=== PATIENT | male | born 1935 | race Two or more races ===

== ENCOUNTER 2017-08-29 13:36 | Inpatient (IN) | payer MEDICARE, MEDICAID ==
[~2017-08-29] VITALS: Ht 170.2 cm; Wt 63.0 kg
[~2017-08-29 13:36] MED LIST: CYCLOBENZAPRINE10 MG ORAL; HYZAAR 100-12.1 EACH ORAL; NORCO 5-325 TA1 EACH ORAL; RANITIDINE HCL150 MG ORAL; SIMVASTATIN20 MG ORAL; ZOFRAN ODT4 MG ORAL
[2017-08-29 14:29] VITALS: BP 166/69
[2017-08-29 14:45] LABS: BASOPHILS % (AUTO) 1.4 % (0.0-2.0); EOSINOPHILS % (AUTO) 1.3 % (0.0-3.0); HEMATOCRIT 42.3 % (42.0-52.0); LYMPHOCYTES % (AUTO) 22.7 % (20.0-45.0); MEAN CORPUSCULAR VOLUME 91 FL (80-99); MONOCYTES % (AUTO) 7.1 % (1.0-10.0); NEUTROPHILS % (AUTO) 67.5 % (45.0-75.0); PLATELET COUNT 217 K/UL (150-450); RED BLOOD COUNT 4.65 M/UL (4.70-6.10); RED CELL DISTRIBUTION WIDTH 12.8 % (11.6-14.8); WHITE BLOOD COUNT 8.3 K/UL (4.8-10.8)
--- NOTE | 2017-08-29 14:49 | Diagnostic Imaging Report ---
Indication: Dizziness Technique: Contiguous 5 mm thick transaxial imaging of the head obtained in a Siemens Sensation [address] scanner. Soft tissue and bone windows generated. Automatic Exposure Control was utilized. Total Dose length Product (DLP): 1404.[address] Dose Index Volume (CTDIvol): 70.38 mGy Comparison: none Findings: There is moderate prominence of the ventricles, basal cisterns, and cerebral sulci consistent with atrophy. Moderate, nonspecific, white matter hypoattenuation is noted throughout the brain consistent with chronic small vessel disease. Small right basal ganglia cystic focus noted consistent with an old lacunar infarct. There is no midline shift, edema, acute hemorrhage, mass effect, or abnormal extra-axial fluid collections. Bones and extra osseous soft tissues are unremarkable. Impression: No acute intracranial bleed, mass effect or edema. Old right basal ganglial lacunar Moderate atrophy of the brain. Evidence of chronic small vessel disease involving white matter tracts. The CT scanner at [facility] is accredited by the [employer] and the scans are performed using dose optimization techniques as appropriate to a performed exam including Automatic Exposure control.
--- NOTE | 2017-08-29 14:50 | Diagnostic Imaging Report ---
Indication: Dyspnea Comparison: None A single view chest radiograph was obtained. Findings: Bones are osteopenic. The heart is enlarged. Lung volumes are low but clear. Cholecystectomy clips noted in the right side. IMPRESSION: No acute disease
[2017-08-29] MEDS ORDERED: CLOPIDOGREL75 MG ORAL (14:54)
[2017-08-29] MEDS ORDERED: MILK OF MA400 MG/51 ORAL (14:54)
[2017-08-29] MEDS ORDERED: MECLIZINE HCL12.5 MG ORAL (14:54)
[2017-08-29] MEDS ORDERED: ZOCOR20 M1 ORAL (14:54)
[2017-08-29] MEDS ORDERED: TRAZODONE HCL50 MG ORAL (14:54)
[2017-08-29] MEDS ORDERED: LOSARTAN-HCTZ1 EAC2 ORAL (14:54)
[2017-08-29] MEDS ORDERED: PROTONIX20 MG ORAL (14:54)
[2017-08-29] MEDS ORDERED: COLCRYS0.6 M1 PO (14:54)
[2017-08-29] MEDS ORDERED: NAMZARIC 28 MG1 EACH PO (14:54)
[2017-08-29] MEDS ORDERED: VITAMIN D22000 UNIT PO (14:54)
[2017-08-29] MEDS ORDERED: METOPROLOL SUCC25 MG ORAL (14:54)
[2017-08-29] MEDS ORDERED: CYANOCOBAL1000 MCG/2 IJ (14:54)
[2017-08-29 14:58] LABS: ANION GAP 4 mmol/L (5-15); BLOOD UREA NITROGEN 16 mg/dL (7-18); CALCIUM 9.5 MG/DL (8.5-10.1); CARBON DIOXIDE 33 MMOL/L (21-32); CHLORIDE 102 MMOL/L (98-107); CREATININE 0.9 MG/DL (0.55-1.30); POTASSIUM 4.1 MMOL/L (3.5-5.1); SODIUM 139 MMOL/L (136-145)
[2017-08-29] MEDS ORDERED: Meclizine 25mg tab ORAL ONE (15:00)
[2017-08-29 15:10] LABS: ALANINE AMINOTRANSFERASE 33 U/L (12-78); ALBUMIN 3.8 G/DL (3.4-5.0); ALKALINE PHOSPHATASE 55 U/L (46-116); ASPARTATE AMINO TRANSFERASE 21 U/L (15-37); BILIRUBIN,TOTAL 0.9 MG/DL (0.2-1.0); CKMB 1.6 NG/ML (0.0-3.6); CREATINE KINASE 107 U/L (26-308)
--- NOTE | 2017-08-29 15:32 | Emergency Room Report ---
History of Present Illness General Chief Complaint: Generalized Weakness Source: Patient Present Illness HPI 81-year-old male presents ED for evaluation. Patient comes from long-term facility with dizziness and unsteady gait. States the room is spinning and is unable to walk. Denies any headache. States he's had this problem on and off previously but states it is worse today. Denies any slurred speech or facial droop. Denies any arm numbness or leg weakness. Denies chest pain or shortness of breath. No other aggravating relieving factors. Denies any other associated symptoms Allergies: Coded Allergies: No Known Allergies (Unverified , 04/17/17) Patient History Past Medical History: DM Past Surgical History: none Pertinent Family History: none Social History: Denies: smoking, alcohol use, drug use Immunizations: UTD Reviewed Nursing Documentation: PMH: Agreed; PSxH: Agreed Nursing Documentation-PMH Hx Hypertension: Yes Hx Diabetes: Yes Review of Systems All Other Systems: negative except mentioned in HPI Physical Exam Vital Signs Date Time Temp Pulse Resp B/P (MAP) Pulse Ox O2 Delivery O2 Flow Rate FiO2 08/29/17 13:31 97.5 60 18 188/84 98 Room Air 97.5 Sp02 EP Interpretation: reviewed, normal General Appearance: no apparent distress, alert, GCS 15, non-toxic Head: normocephalic, atraumatic Eyes: bilateral eye normal inspection, bilateral eye PERRL ENT: hearing grossly normal, normal pharynx, no angioedema, normal voice Neck: full range of motion, supple/symm/no masses Respiratory: chest non-tender, lungs clear, normal breath sounds, speaking full sentences Cardiovascular #1: regular rate, rhythm, no edema Cardiovascular #2: 2+ carotid (R), 2+ carotid (L), 2+ radial (R), 2+ radial (L) , 2+ dorsalis pedis (R), 2+ dorsalis pedis (L) Gastrointestinal: normal bowel sounds, non tender, soft, non-distended, no guarding, no rebound Rectal: deferred Genitourinary: normal inspection, no CVA tenderness Musculoskeletal: back normal, normal range of motion, non-tender Neurologic: alert, oriented x3, responsive, 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, motor strength/tone normal, sensory intact, speech normal Psychiatric: judgement/insight normal, memory normal, mood/affect normal, no suicidal/homicidal ideation Reflexes: 3+ bicep (R), 3+ bicep (L), 3+ tricep (R), 3+ tricep (L), 3+ knee (R) , 3+ knee (L) Skin: normal color, no rash, warm/dry, well hydrated Lymphatic: no adenopathy Medical Decision Making Diagnostic Impression: Primary Impression: Dizziness Additional Impression: Unsteady gait ER Course Hospital Course 81-year-old male presents ED complaining of dizziness, nausea, unsteady gait Differential diagnoses include: WI/unstable angina, arrythmia, dehydration, CVA/ TIA Clinical course Patient placed on stretcher. on gambling monitor. After initial history and physical I ordered labs, EKG, chest x-ray, IVFs, CT Brain labs reviewed- no leukocytosis, hemoglobin/hematocrit ok, electrolytes okay, troponins negative EKG- NSR, no acute ischemic changes interpreted by me Chest x-ray- no acute process CT brain-unremarkable Patient has prior history of vertigo. Had been prescribed meclizine. I gave patient dose of meclizine here. However patient continues to feel unsteady. Suspicion for central causes of vertigo is low however I do believe patient should be admitted Case discussed with Dr. Adams (covering for Dr Roy) and he agreed to accept the patient to his service for further care and support I. I feel this is a highly complex case requiring extensive working including EKG/Rhythm strip, Xray/CT/US, Blood/urine lab work, repeat exams while in ED, and administration of strong opiates/narcotics for pain control, admission to hospital or close patient follow up. Diagnosis - dizziness, unsteady gait admitted to floor in serious condition Labs Test 08/29/17 14:15 White Blood Count 8.3 K/UL (4.8-10.8) Red Blood Count 4.65 M/UL (4.70-6.10) Hemoglobin 14.0 G/DL (14.2-18.0) Hematocrit 42.3 % (42.0-52.0) Mean Corpuscular Volume 91 FL (80-99) Mean Corpuscular Hemoglobin 30.1 PG (27.0-31.0) Mean Corpuscular Hemoglobin Concent 33.1 G/DL (32.0-36.0) Red Cell Distribution Width 12.8 % (11.6-14.8) Platelet Count 217 K/UL (150-450) Mean Platelet Volume 8.3 FL (6.5-10.1) Neutrophils (%) (Auto) 67.5 % (45.0-75.0) Lymphocytes (%) (Auto) 22.7 % (20.0-45.0) Monocytes (%) (Auto) 7.1 % (1.0-10.0) Eosinophils (%) (Auto) 1.3 % (0.0-3.0) Basophils (%) (Auto) 1.4 % (0.0-2.0) Sodium Level 139 MMOL/L (136-145) Potassium Level 4.1 MMOL/L (3.5-5.1) Chloride Level 102 MMOL/L (98-107) Carbon Dioxide Level 33 MMOL/L (21-32) Anion Gap 4 mmol/L (5-15) Blood Urea Nitrogen 16 mg/dL (7-18) Creatinine 0.9 MG/DL (0.55-1.30) Estimat Glomerular Filtration Rate mL/min (>60) Glucose Level 114 MG/DL (74-106) Lactic Acid Level 0.90 mmol/L (0.66-2.22) Calcium Level 9.5 MG/DL (8.5-10.1) Total Bilirubin 0.9 MG/DL (0.2-1.0) Aspartate Amino Transf (AST/SGOT) 21 U/L (15-37) Alanine Aminotransferase (ALT/SGPT) 33 U/L (12-78) Alkaline Phosphatase 55 U/L (46-116) Total Creatine Kinase 107 U/L (26-308) Creatine Kinase MB 1.6 NG/ML (0.0-3.6) Creatine Kinase MB Relative Index 1.4 Troponin I 0.000 ng/mL (0.000-0.056) Pro-B-Type Natriuretic Peptide 207 pg/mL (0-125) Total Protein 7.5 G/DL (6.4-8.2) Albumin 3.8 G/DL (3.4-5.0) Globulin 3.7 g/dL Albumin/Globulin Ratio 1.0 (1.0-2.7) Lipase 130 U/L (73-393) EKG Diagnostic Results Rate: normal Rhythm: NSR ST Segments: no acute changes ASA given to the pt in ED: No Rhythm Strip Diag. Results EP Interpretation: yes Rhythm: NSR, no PVC's, no ectopy Chest X-Ray Diagnostic Results Chest X-Ray Diagnostic Results : Chest X-Ray Ordered: Yes # of Views/Limited/Complete: 1 View Indication: Other - diziness EP Interpretation: Yes Interpretation: no consolidation, no effusion, no pneumothorax, no acute cardiopulmonary disease Impression: No acute disease Electronically Signed by: Electronically signed by Julio Land MD CT/MRI/US Diagnostic Results CT/MRI/US Diagnostic Results : Imaging Test Ordered: CT Head Impression no acute process. old lacunar infarct Last Vital Signs Date Time Temp Pulse Resp B/P (MAP) Pulse Ox O2 Delivery O2 Flow Rate FiO2 08/29/17 14:29 57 18 166/69 98 Room Air 08/29/17 13:31 97.5 97.5 Status: improved Disposition: ADMITTED INPATIENT Condition: Serious Referrals: NON PHYSICIAN (PCP) Julio Land MD August 29, 2017 15:32
[2017-08-29] MEDS ORDERED: Acetaminophen 500mg (ES) tab ORAL ONE (16:15)
[2017-08-29 17:49] VITALS: BP 141/66
[2017-08-29 18:07] LABS: APPEARANCE,URINE CLEAR; BILIRUBIN, URINE NEGATIVE (NEGATIVE); COLOR,URINE PALE YELLOW; GLUCOSE, URINE (UA) NEGATIVE (NEGATIVE); KETONES,URINE NEGATIVE (NEGATIVE); LEUKOCYTE ESTERASE ,URINE NEGATIVE (NEGATIVE); NITRITE,URINE NEGATIVE (NEGATIVE); PH,URINE 5 (4.5-8.0); PROTEIN,URINE NEGATIVE (NEGATIVE); UROBILINOGEN,URINE NORMAL MG/DL (0.0-1.0)
--- NOTE | 2017-08-29 20:12 | History & Physical ---
History and Physical History & Physicial Dictated for Int Med Dr Adams no. [id number]. Horacio Lyons MD August 29, 2017 20:12
[2017-08-29 20:29] VITALS: BP 163/75
--- NOTE | 2017-08-29 21:15 | History and Physical Report ---
DATE OF ADMISSION: 08/29/2017 CHIEF COMPLAINT: The patient is an 81-year-old white male, who presents with chief complaint of dizziness. HISTORY OF PRESENT ILLNESS: The patient has history of vertigo. The patient is a resident of [facility]. The patient herself speaks Farsi. The patient is able to communicate somewhat in Slovenian. The patient states he normally has vertigo. The patient states the dizziness got worse today. The patient took meclizine without relief. The patient was transported to [facility] Emergency Room for evaluation. The patient is admitted for intractable vertigo to rule out cerebrovascular accident. REVIEW OF SYSTEMS: CONSTITUTIONAL: The patient denies weight loss or weight gain. The patient denies fevers or chills. HEENT: The patient denies ear or throat pain. The patient denies headache. CARDIOVASCULAR: The patient denies palpitations or chest pain. CHEST: The patient denies wheeze or shortness of breath. ABDOMEN: The patient denies nausea, vomiting, diarrhea, or constipation. GENITOURINARY: The patient denies dysuria or increased frequency of urination. NEUROMUSCULAR: The patient denies seizures or generalized weakness. The patient does complain of dizziness as above. PAST MEDICAL HISTORY: Significant for: 1. Type 2 diabetes. 2. Hypertension. 3. Hypercholesterolemia. 4. Benign positional vertigo. PAST SURGICAL HISTORY: The patient denies. CURRENT MEDICATIONS: 1. Simvastatin 20 mg one tablet p.o. daily. 2. Trazodone 50 mg p.o. nightly. 3. Meclizine 25 mg one tablet p.o. q.6 hours p.r.n. 4. Clopidogrel 75 mg p.o. daily. 5. Losartan/hydrochlorothiazide 50/12.5 one tablet p.o. daily. 6. Metoprolol 25 mg one tablet p.o. daily. 7. Namzaric 28 mg/10 mg 1 tablet p.o. daily. 8. Protonix 40 mg p.o. daily. ALLERGIES: No known drug allergies. SOCIAL HISTORY: The patient is a resident of [facility]. The patient denies tobacco or alcohol use. PHYSICAL EXAMINATION: VITAL SIGNS: Temperature 97.5, respirations 18, pulse 60, blood pressure 188/84. GENERAL: The patient is a well-developed, well-nourished [place] male, in no apparent distress. HEENT: Eyes, pupils equal and responsive to light and accommodation. Extraocular movements are intact. NECK: Supple. No lymphadenopathy. CHEST: Lungs are clear to auscultation bilaterally without wheezes or rales. CARDIOVASCULAR: Regular rhythm and rate. S1, S2 normal. No murmurs, rubs, or gallops. ABDOMEN: Soft, nontender, and nondistended. Positive bowel sounds. No evidence of hepatosplenomegaly. Currently, no rebound or guarding noted. EXTREMITIES: Negative for clubbing, cyanosis, or edema. RECTAL: Refused. GENITAL: Refused. NEUROLOGICAL: Cranial nerves II through XII are grossly intact without focal deficits. Motor strength is 5/5 bilaterally intact. Deep tendon reflexes are 2+, plantar. LABORATORY STUDIES: WBC 8.3, hemoglobin 14.0, hematocrit 42.3, platelets 217,000. Sodium 139, potassium 4.1, chloride 102, CO2 33, BUN 16, creatinine 0.9, glucose 114. Troponin 0.0. CT scan of the brain failed to demonstrate acute bleed or infarct. ASSESSMENT: This is an 81-year-old white male with: 1. Intractable vertigo. 2. Diabetes type 2. 3. Hypertension. 4. Hypercholesterolemia. TREATMENT: 1. Vertigo. The patient will continue on meclizine as above. A Neurology consultation has been obtained with Dr. Gallagher. We will follow recommendations of Neurology. 2. Diabetes type 2. Continue metformin as above. Accu-Cheks will be performed daily before meals and at bedtime . 3. Hypertension. Continue losartan/hydrochlorothiazide and metoprolol as above. 4. Hypercholesterolemia. Continue Zocor as above. Horacio Lyons M.D. DR: Gabriella JOB#: [id number] CC:
[2017-08-29] MEDS: D5 1/2NS 1,000 ML IV SCH (22:30)
[2017-08-29] MEDS ORDERED: Meclizine 25mg tab ORAL PRN (22:30)
[2017-08-29] MEDS ORDERED: Milk of Magnesia 30ml Ud ORAL PRN (22:30)
[2017-08-30 00:42] VITALS: BP 141/68
[2017-08-30 04:00] VITALS: BP 138/68
[2017-08-30 07:43] LABS: BASOPHILS % (AUTO) 0.9 % (0.0-2.0); EOSINOPHILS % (AUTO) 1.9 % (0.0-3.0); HEMATOCRIT 37.1 % (42.0-52.0); HEMOGLOBIN 12.7 G/DL (14.2-18.0); MEAN CORPUSCULAR VOLUME 90 FL (80-99); MONOCYTES % (AUTO) 6.8 % (1.0-10.0); NEUTROPHILS % (AUTO) 62.5 % (45.0-75.0); PLATELET COUNT 192 K/UL (150-450); RED BLOOD COUNT 4.13 M/UL (4.70-6.10); RED CELL DISTRIBUTION WIDTH 12.7 % (11.6-14.8); WHITE BLOOD COUNT 7.2 K/UL (4.8-10.8)
[2017-08-30 08:03] LABS: ANION GAP 9 mmol/L (5-15); BLOOD UREA NITROGEN 19 mg/dL (7-18); CALCIUM 9.1 MG/DL (8.5-10.1); CARBON DIOXIDE 30 MMOL/L (21-32); CHLORIDE 102 MMOL/L (98-107); PHOSPHORUS 5.4 MG/DL (2.5-4.9); POTASSIUM 3.5 MMOL/L (3.5-5.1); SODIUM 141 MMOL/L (136-145)
[2017-08-30 09:00] VITALS: BP 140/71
[2017-08-30] MEDS: Metoprolol Succinate XL 50mg tab ORAL SCH ×2 (09:00→18:30)
[2017-08-30] MEDS: Losartan 50mg tab ORAL SCH (09:19)
[2017-08-30] MEDS: Heparin 5000 units/ml inj SUBQ SCH ×2 (09:28→20:59)
[2017-08-30] MEDS: D5 1/2NS 1,000 ML IV SCH (12:32)
--- NOTE | 2017-08-30 14:38 | History and Physical ---
History of Present Illness General Date patient seen: August 30, 2017 Time patient seen: 14:15 Reason for Hospitalization: Generalized Weakness, dizziness Present Illness HPI Patient admitted for dizziness and weakness, unsteady gait. NO syncope. NO chest pain or SOB. No LOC Hx of HTN, DM, HLD. EKG NSR with no arrhythmias. Allergies: Coded Allergies: No Known Allergies (Unverified , 04/17/17) Medication History Scheduled Clopidogrel* (Clopidogrel*), 75 MG ORAL DAILY, (Reported) Colchicine (Colcrys), 0.6 MG PO DAILY, (Reported) Cyanocobalamin (Vitamin B-12) (Cyanocobalamin Injection), 1,000 MCG IJ ONCE A WEEK, (Reported) Cyclobenzaprine Hcl* (Flexeril*), 10 MG ORAL THREE TIMES A DAY, (Reported) Ergocalciferol (Vitamin D2) (Vitamin D2), 50,000 UNIT PO ONCE A WEEK, (Reported) Losartan/Hydrochlorothiazide (Losartan-Hctz 50-12.5 Mg Tab), 1 TAB ORAL DAILY, ( Reported) Losartan/Hydrochlorothiazide 100-12.5 Tablet (Hyzaar 100-12.5 Tablet), 1 TAB ORAL DAILY, (Reported) Magnesium Hydroxide* (Milk Of Magnesia*), 30 ML ORAL DAILY, (Reported) Meclizine Hcl* (Meclizine*), 12.5 MG ORAL BID, (Reported) Memantine HCl/Donepezil HCl (Namzaric 28 mg-10 mg Capsule), 1 EACH PO DAILY, ( Reported) Metoprolol Succinate* (Metoprolol Succinate*), 25 MG ORAL DAILY, (Reported) Pantoprazole Sodium (Protonix), 40 MG ORAL DAILY, (Reported) Ranitidine Hcl* (Zantac*), 150 MG ORAL TWICE A DAY Simvastatin (Zocor), 20 MG ORAL DAILY, (Reported) Simvastatin (Zocor), 20 MG ORAL BEDTIME, (Reported) Trazodone Hcl* (Desyrel*), 50 MG ORAL BEDTIME, (Reported) Scheduled PRN Hydrocodone Bit/Acetaminophen 5-325* ([place] 5-325*), 1 TAB ORAL Q6H PRN for For Pain, (Reported) Ondansetron Odt* (Zofran Odt*), 4 MG ORAL Q6H PRN for Nausea & Vomiting Patient History History Provided By: Patient Healthcare decision maker Resuscitation status Full Code Advanced Directive on File Review of Systems Constitutional: Reports: no symptoms ENT: Reports: no symptoms Respiratory: Reports: no symptoms Cardiovascular: Reports: no symptoms Gastrointestinal: Reports: no symptoms Musculoskeletal: Reports: no symptoms Psychiatric: Reports: no symptoms Neurological: Reports: dizziness Endocrine: Reports: no symptoms Hematologic/Lymphatic: Reports: no symptoms Physical Exam General Appearance: WD/WN HEENT: normocephalic Neck: non-tender Respiratory/Chest: chest wall non-tender Cardiovascular/Chest: normal peripheral pulses Abdomen: normal bowel sounds Extremities: normal range of motion, non-tender Skin Exam: warm/dry 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 Last 24 Hour Vital Signs Date Time Temp Pulse Resp B/P (MAP) Pulse Ox O2 Delivery O2 Flow Rate FiO2 08/30/17 09:19 140/71 08/30/17 09:00 98.0 57 18 140/71 98 Room Air 98.0 08/30/17 09:00 57 140/71 08/30/17 04:00 97.9 54 19 138/68 96 Room Air 97.9 08/30/17 00:42 97.9 56 18 141/68 94 97.9 08/29/17 20:29 97.3 59 17 163/75 96 97.3 08/29/17 18:19 97.0 61 18 141/66 97 Room Air 97.0 08/29/17 17:49 97.0 61 18 141/66 97 Room Air 97.0 Intake and Output 08/29/17 08/30/17 19:00 07:00 Intake Total 0 ml 840 ml Balance 0 ml 840 ml Intake Oral 0 ml 240 ml IV Total 600 ml Laboratory Tests Test 08/29/17 17:45 08/30/17 05:20 Urine Color Pale yellow Urine Appearance Clear Urine pH 5 (4.5-8.0) Urine Specific [place] 1.015 (1.005-1.035) Urine Protein Negative (NEGATIVE) Urine Glucose (UA) Negative (NEGATIVE) Urine Ketones Negative (NEGATIVE) Urine Occult Blood 2+ (NEGATIVE) H Urine Nitrite Negative (NEGATIVE) Urine Bilirubin Negative (NEGATIVE) Urine Urobilinogen Normal MG/DL (0.0-1.0) Urine Leukocyte Esterase Negative (NEGATIVE) Urine RBC 2-4 /HPF (0 - 0) H Urine WBC 0-2 /HPF (0 - 0) Urine Squamous Epithelial Cells None /LPF (NONE/OCC) Urine Bacteria Few /HPF (NONE) White Blood Count 7.2 K/UL (4.8-10.8) Red Blood Count 4.13 M/UL (4.70-6.10) L Hemoglobin 12.7 G/DL (14.2-18.0) L Hematocrit 37.1 % (42.0-52.0) L Mean Corpuscular Volume 90 FL (80-99) Mean Corpuscular Hemoglobin 30.8 PG (27.0-31.0) Mean Corpuscular Hemoglobin Concent 34.2 G/DL (32.0-36.0) Red Cell Distribution Width 12.7 % (11.6-14.8) Platelet Count 192 K/UL (150-450) Mean Platelet Volume 8.2 FL (6.5-10.1) Neutrophils (%) (Auto) 62.5 % (45.0-75.0) Lymphocytes (%) (Auto) 28.0 % (20.0-45.0) Monocytes (%) (Auto) 6.8 % (1.0-10.0) Eosinophils (%) (Auto) 1.9 % (0.0-3.0) Basophils (%) (Auto) 0.9 % (0.0-2.0) Sodium Level 141 MMOL/L (136-145) Potassium Level 3.5 MMOL/L (3.5-5.1) Chloride Level 102 MMOL/L (98-107) Carbon Dioxide Level 30 MMOL/L (21-32) Anion Gap 9 mmol/L (5-15) Blood Urea Nitrogen 19 mg/dL (7-18) H Creatinine 1.0 MG/DL (0.55-1.30) Estimat Glomerular Filtration Rate mL/min (>60) Glucose Level 112 MG/DL (74-106) H Calcium Level 9.1 MG/DL (8.5-10.1) Phosphorus Level 5.4 MG/DL (2.5-4.9) H Magnesium Level 1.8 MG/DL (1.8-2.4) Height (Feet): 5 Height (Inches): 7.00 Weight (Pounds): 139 Medications Current Medications Medications (Trade) Dose Ordered Sig/Jaqueline Route PRN Reason Start Time Stop Time Status Last Admin Dose Admin Atorvastatin Calcium (Lipitor) 10 mg BEDTIME ORAL 08/30/17 21:00 09/29/17 20:59 Dextrose/Sodium Chloride 1,000 ml @ 75 mls/hr [id number] IV 08/29/17 22:30 09/28/17 22:29 08/30/17 12:32 Heparin Sodium (Porcine) (Heparin 5000 units/ml) 5,000 units EVERY 12 HOURS SUBQ 08/30/17 09:00 09/29/17 08:59 08/30/17 09:28 Losartan Potassium (Cozaar) 100 mg DAILY ORAL 08/30/17 09:00 09/29/17 08:59 08/30/17 09:19 Magnesium Hydroxide (Mom) 30 ml DAILYPRN PRN ORAL Constipation 08/29/17 22:30 09/28/17 22:29 Meclizine HCl (Antivert) 12.5 mg BID PRN ORAL for dizziness 08/29/17 22:30 09/28/17 22:29 08/30/17 09:18 Metoprolol Succinate (Toprol XL) 25 mg BID ORAL 08/30/17 09:00 09/29/17 08:59 Non-Formulary Medication (Non-Formulary Med) 1 ea DAILY ORAL 08/30/17 09:00 09/29/17 08:59 UNV Ondansetron HCl (Zofran) 4 mg Q6H PRN IVP Nausea & Vomiting 08/29/17 22:30 09/28/17 22:29 Pantoprazole (Protonix) 40 mg DAILY ORAL 08/30/17 09:00 09/29/17 08:59 08/30/17 09:17 Trazodone HCl (Desyrel) 50 mg BEDTIME ORAL 08/30/17 21:00 09/29/17 20:59 Assessment/Plan Assessment/Plan Dizziness Hypertension DM HLD Plan: Carotid US Echocardiogram Physical therapy IV fluids Meclizine prn dizziness Continue lipitor Continue blood pressure medications Emil Pablo M.D. August 30, 2017 14:37
--- NOTE | 2017-08-30 15:05 | Consultation ---
History of Present Illness General Date patient seen: August 30, 2017 Chief Complaint: Generalized Weakness Present Illness HPI 81-year-old male with hx of DM, CVA, dementia, depression presented to ED for evaluation of dizziness and unsteady gait. Denies any slurred speech or facial droop. Denies any arm numbness or leg weakness. Denies chest pain or shortness of breath. The CT of head in ER was negative. He is admitted for further management. Allergies: Coded Allergies: No Known Allergies (Unverified , 04/17/17) Medication History Scheduled Clopidogrel* (Clopidogrel*), 75 MG ORAL DAILY, (Reported) Colchicine (Colcrys), 0.6 MG PO DAILY, (Reported) Cyanocobalamin (Vitamin B-12) (Cyanocobalamin Injection), 1,000 MCG IJ ONCE A WEEK, (Reported) Cyclobenzaprine Hcl* (Flexeril*), 10 MG ORAL THREE TIMES A DAY, (Reported) Ergocalciferol (Vitamin D2) (Vitamin D2), 50,000 UNIT PO ONCE A WEEK, (Reported) Losartan/Hydrochlorothiazide (Losartan-Hctz 50-12.5 Mg Tab), 1 TAB ORAL DAILY, ( Reported) Losartan/Hydrochlorothiazide 100-12.5 Tablet (Hyzaar 100-12.5 Tablet), 1 TAB ORAL DAILY, (Reported) Magnesium Hydroxide* (Milk Of Magnesia*), 30 ML ORAL DAILY, (Reported) Meclizine Hcl* (Meclizine*), 12.5 MG ORAL BID, (Reported) Memantine HCl/Donepezil HCl (Namzaric 28 mg-10 mg Capsule), 1 EACH PO DAILY, ( Reported) Metoprolol Succinate* (Metoprolol Succinate*), 25 MG ORAL DAILY, (Reported) Pantoprazole Sodium (Protonix), 40 MG ORAL DAILY, (Reported) Ranitidine Hcl* (Zantac*), 150 MG ORAL TWICE A DAY Simvastatin (Zocor), 20 MG ORAL DAILY, (Reported) Simvastatin (Zocor), 20 MG ORAL BEDTIME, (Reported) Trazodone Hcl* (Desyrel*), 50 MG ORAL BEDTIME, (Reported) Scheduled PRN Hydrocodone Bit/Acetaminophen 5-325* ([place] 5-325*), 1 TAB ORAL Q6H PRN for For Pain, (Reported) Ondansetron Odt* (Zofran Odt*), 4 MG ORAL Q6H PRN for Nausea & Vomiting Patient History Healthcare decision maker Resuscitation status Full Code Advanced Directive on File Past Medical/Surgical History Past Medical/Surgical History: (1) Dementia (2) HTN (hypertension) (3) COPD (chronic obstructive pulmonary disease) Review of Systems Constitutional: Reports: malaise, weakness All Other Systems: negative except mentioned in HPI Physical Exam General Appearance: cachetic Lines, tubes and drains: peripheral HEENT: normocephalic Neck: non-tender, normal alignment Respiratory/Chest: chest wall non-tender, normal breath sounds Breasts: no masses Cardiovascular/Chest: normal peripheral pulses Abdomen: normal bowel sounds Genitourinary/Rectal: normal prostate exam Skin Exam: warm/dry, cyanotic Last 24 Hour Vital Signs Date Time Temp Pulse Resp B/P (MAP) Pulse Ox O2 Delivery O2 Flow Rate FiO2 08/30/17 09:19 140/71 08/30/17 09:00 98.0 57 18 140/71 98 Room Air 98.0 08/30/17 09:00 57 140/71 08/30/17 04:00 97.9 54 19 138/68 96 Room Air 97.9 08/30/17 00:42 97.9 56 18 141/68 94 97.9 08/29/17 20:29 97.3 59 17 163/75 96 97.3 08/29/17 18:19 97.0 61 18 141/66 97 Room Air 97.0 08/29/17 17:49 97.0 61 18 141/66 97 Room Air 97.0 Intake and Output 08/29/17 08/30/17 19:00 07:00 Intake Total 0 ml 840 ml Balance 0 ml 840 ml Intake Oral 0 ml 240 ml IV Total 600 ml Laboratory Tests Test 08/29/17 17:45 08/30/17 05:20 Urine Color Pale yellow Urine Appearance Clear Urine pH 5 (4.5-8.0) Urine Specific Crane 1.015 (1.005-1.035) Urine Protein Negative (NEGATIVE) Urine Glucose (UA) Negative (NEGATIVE) Urine Ketones Negative (NEGATIVE) Urine Occult Blood 2+ (NEGATIVE) H Urine Nitrite Negative (NEGATIVE) Urine Bilirubin Negative (NEGATIVE) Urine Urobilinogen Normal MG/DL (0.0-1.0) Urine Leukocyte Esterase Negative (NEGATIVE) Urine RBC 2-4 /HPF (0 - 0) H Urine WBC 0-2 /HPF (0 - 0) Urine Squamous Epithelial Cells None /LPF (NONE/OCC) Urine Bacteria Few /HPF (NONE) White Blood Count 7.2 K/UL (4.8-10.8) Red Blood Count 4.13 M/UL (4.70-6.10) L Hemoglobin 12.7 G/DL (14.2-18.0) L Hematocrit 37.1 % (42.0-52.0) L Mean Corpuscular Volume 90 FL (80-99) Mean Corpuscular Hemoglobin 30.8 PG (27.0-31.0) Mean Corpuscular Hemoglobin Concent 34.2 G/DL (32.0-36.0) Red Cell Distribution Width 12.7 % (11.6-14.8) Platelet Count 192 K/UL (150-450) Mean Platelet Volume 8.2 FL (6.5-10.1) Neutrophils (%) (Auto) 62.5 % (45.0-75.0) Lymphocytes (%) (Auto) 28.0 % (20.0-45.0) Monocytes (%) (Auto) 6.8 % (1.0-10.0) Eosinophils (%) (Auto) 1.9 % (0.0-3.0) Basophils (%) (Auto) 0.9 % (0.0-2.0) Sodium Level 141 MMOL/L (136-145) Potassium Level 3.5 MMOL/L (3.5-5.1) Chloride Level 102 MMOL/L (98-107) Carbon Dioxide Level 30 MMOL/L (21-32) Anion Gap 9 mmol/L (5-15) Blood Urea Nitrogen 19 mg/dL (7-18) H Creatinine 1.0 MG/DL (0.55-1.30) Estimat Glomerular Filtration Rate mL/min (>60) Glucose Level 112 MG/DL (74-106) H Calcium Level 9.1 MG/DL (8.5-10.1) Phosphorus Level 5.4 MG/DL (2.5-4.9) H Magnesium Level 1.8 MG/DL (1.8-2.4) Height (Feet): 5 Height (Inches): 7.00 Weight (Pounds): 139 Medications Current Medications Medications (Trade) Dose Ordered Sig/Jaqueline Route PRN Reason Start Time Stop Time Status Last Admin Dose Admin Atorvastatin Calcium (Lipitor) 10 mg BEDTIME ORAL 08/30/17 21:00 09/29/17 20:59 Dextrose/Sodium Chloride 1,000 ml @ 75 mls/hr [id number] IV 08/29/17 22:30 09/28/17 22:29 08/30/17 12:32 Heparin Sodium (Porcine) (Heparin 5000 units/ml) 5,000 units EVERY 12 HOURS SUBQ 08/30/17 09:00 09/29/17 08:59 08/30/17 09:28 Losartan Potassium (Cozaar) 100 mg DAILY ORAL 08/30/17 09:00 09/29/17 08:59 08/30/17 09:19 Magnesium Hydroxide (Mom) 30 ml DAILYPRN PRN ORAL Constipation 08/29/17 22:30 09/28/17 22:29 Meclizine HCl (Antivert) 12.5 mg BID PRN ORAL for dizziness 08/29/17 22:30 09/28/17 22:29 08/30/17 09:18 Metoprolol Succinate (Toprol XL) 25 mg BID ORAL 08/30/17 09:00 09/29/17 08:59 Non-Formulary Medication (Non-Formulary Med) 1 ea DAILY ORAL 08/30/17 09:00 09/29/17 08:59 UNV Ondansetron HCl (Zofran) 4 mg Q6H PRN IVP Nausea & Vomiting 08/29/17 22:30 09/28/17 22:29 Pantoprazole (Protonix) 40 mg DAILY ORAL 08/30/17 09:00 09/29/17 08:59 08/30/17 09:17 Trazodone HCl (Desyrel) 50 mg BEDTIME ORAL 08/30/17 21:00 09/29/17 20:59 Assessment/Plan Problem List: (1) Dizziness ICD Codes: R42 - Dizziness and giddiness SNOMED: 332740288, 903042888 (2) COPD (chronic obstructive pulmonary disease) ICD Codes: J44.9 - Chronic obstructive pulmonary disease, unspecified SNOMED: 49724630 (3) HTN (hypertension) ICD Codes: I10 - Essential (primary) hypertension SNOMED: 69567959 (4) Dementia ICD Codes: F03.90 - Unspecified dementia without behavioral disturbance SNOMED: 89656569 (5) Unsteady gait ICD Codes: R26.81 - Unsteadiness on feet SNOMED: 63031538, 060700521 Assessment/Plan neuro evaluation pt/ot monitor BP echo carotid artery d/w Dr. Pablo. symptomatic treatment. dvt prophylaxis Lizeth Gupta MD August 30, 2017 15:05
[2017-08-30] MEDS ORDERED: Tubing IV Secondary IV ONE (17:35)
--- NOTE | 2017-08-30 19:43 | Internal Med Progress Note ---
Subjective Date of Service: August 30, 2017 Physician Name Horacio Lyons Attending Physician Vance Adams MD Current Medications Medications (Trade) Dose Ordered Sig/Jaqueline Route PRN Reason Start Time Stop Time Status Last Admin Dose Admin Atorvastatin Calcium (Lipitor) 10 mg BEDTIME ORAL 08/30/17 21:00 09/29/17 20:59 Heparin Sodium (Porcine) (Heparin 5000 units/ml) 5,000 units EVERY 12 HOURS SUBQ 08/30/17 09:00 09/29/17 08:59 08/30/17 09:28 Losartan Potassium (Cozaar) 100 mg DAILY ORAL 08/30/17 09:00 09/29/17 08:59 08/30/17 09:19 Magnesium Hydroxide (Mom) 30 ml DAILYPRN PRN ORAL Constipation 08/29/17 22:30 09/28/17 22:29 Meclizine HCl (Antivert) 12.5 mg BID PRN ORAL for dizziness 08/29/17 22:30 09/28/17 22:29 08/30/17 09:18 Metoprolol Succinate (Toprol XL) 25 mg BID ORAL 08/30/17 09:00 09/29/17 08:59 Non-Formulary Medication (Non-Formulary Med) 1 ea DAILY ORAL 08/30/17 09:00 09/29/17 08:59 UNV Ondansetron HCl (Zofran) 4 mg Q6H PRN IVP Nausea & Vomiting 08/29/17 22:30 09/28/17 22:29 Pantoprazole (Protonix) 40 mg DAILY ORAL 08/30/17 09:00 09/29/17 08:59 08/30/17 09:17 Trazodone HCl (Desyrel) 50 mg BEDTIME ORAL 08/30/17 21:00 09/29/17 20:59 Allergies: Coded Allergies: No Known Allergies (Unverified , 04/17/17) ROS Limited/Unobtainable: No Constitutional: Reports: no symptoms HEENT: Reports: no symptoms Cardiovascular: Reports: no symptoms Respiratory: Reports: no symptoms Gastrointestinal/Abdominal: Reports: no symptoms Genitourinary: Reports: no symptoms Neurologic/Psychiatric: Reports: no symptoms Subjective 81 YO M admitted with vertigo. Cover for Int Med Dr Adams Objective Last Vital Signs Date Time Temp Pulse Resp B/P (MAP) Pulse Ox O2 Delivery O2 Flow Rate FiO2 08/30/17 18:30 55 144/72 08/30/17 09:00 98.0 18 98 Room Air 98.0 General Appearance: WD/WN, no apparent distress, alert EENT: PERRL/EOMI, normal ENT inspection, TMs normal Neck: non-tender, normal alignment, supple Cardiovascular: normal peripheral pulses, normal rate, regular rhythm, no gallop/murmur, no JVD Respiratory/Chest: chest wall non-tender, lungs clear, normal breath sounds, no respiratory distress, no accessory muscle use Abdomen: normal bowel sounds, non tender, soft, no organomegaly, no mass Extremities: normal range of motion, non-tender Neurologic: spot washer II-XII grossly normal, no motor/sensory deficits Skin: normal pigmentation, warm/dry Laboratory Tests Test 08/30/17 05:20 08/30/17 17:00 White Blood Count 7.2 K/UL (4.8-10.8) Red Blood Count 4.13 M/UL (4.70-6.10) L Hemoglobin 12.7 G/DL (14.2-18.0) L Hematocrit 37.1 % (42.0-52.0) L Mean Corpuscular Volume 90 FL (80-99) Mean Corpuscular Hemoglobin 30.8 PG (27.0-31.0) Mean Corpuscular Hemoglobin Concent 34.2 G/DL (32.0-36.0) Red Cell Distribution Width 12.7 % (11.6-14.8) Platelet Count 192 K/UL (150-450) Mean Platelet Volume 8.2 FL (6.5-10.1) Neutrophils (%) (Auto) 62.5 % (45.0-75.0) Lymphocytes (%) (Auto) 28.0 % (20.0-45.0) Monocytes (%) (Auto) 6.8 % (1.0-10.0) Eosinophils (%) (Auto) 1.9 % (0.0-3.0) Basophils (%) (Auto) 0.9 % (0.0-2.0) Sodium Level 141 MMOL/L (136-145) Potassium Level 3.5 MMOL/L (3.5-5.1) Chloride Level 102 MMOL/L (98-107) Carbon Dioxide Level 30 MMOL/L (21-32) Anion Gap 9 mmol/L (5-15) Blood Urea Nitrogen 19 mg/dL (7-18) H Creatinine 1.0 MG/DL (0.55-1.30) Estimat Glomerular Filtration Rate mL/min (>60) Glucose Level 112 MG/DL (74-106) H Calcium Level 9.1 MG/DL (8.5-10.1) Phosphorus Level 5.4 MG/DL (2.5-4.9) H Magnesium Level 1.8 MG/DL (1.8-2.4) Troponin I 0.007 ng/mL (0.000-0.056) Intake and Output 08/29/17 08/30/17 19:00 07:00 Intake Total 0 ml 840 ml Balance 0 ml 840 ml Intake Oral 0 ml 240 ml IV Total 600 ml Assessment/Plan Problem List: (1) Vertigo Assessment & Plan: Continue meclizine (2) Hypercholesteremia Assessment & Plan: Continue lipitor (3) HTN (hypertension) Assessment & Plan: Continue cozaar (4) Dizziness Status: progressing Horacio Lyons MD August 30, 2017 19:43
[2017-08-30 20:00] VITALS: BP 152/79
[2017-08-30] MEDS ORDERED: TraZODone 50mg tab ORAL SCH (21:00)
--- NOTE | 2017-08-30 22:15 | Progress Note ---
DATE: 08/30/2017 SUBJECTIVE: The patient is calm in bed. Family member in his room. No behavior issues. Continues to be anxious, dysphoric, compliant with medication. MENTAL STATUS EXAMINATION: The patient is alert and oriented times self and place. Mood is dysphoric. Affect is constricted. Thought process is concrete. Thought content, no suicidal or homicidal ideation. ASSESSMENT: 1. Anxiety disorder. 2. Insomnia. 3. Depression. PLAN: 1. We will continue trazodone 50 mg at bedtime. 2. Provide the patient with supportive therapy and reality orientation. Radha Celis M.D. DR: NORA JOB#: [id number] CC:
--- NOTE | 2017-08-30 22:35 | Cardiology Report ---
APPROVED REPORT EKG Measurement Heart [id number] CO [id number] [id number] Sinus bradycardia with 1st degree AV block Otherwise normal ECG
[2017-08-31] VITALS: BP 127/63
--- NOTE | 2017-08-31 01:00 | Consultation ---
DATE OF CONSULTATION: 08/29/2017 CONSULTING PHYSICIAN: Radha Celis M.D. HISTORY: This is an 81-year-old male with a history of multiple medical problems. He is Farsi speaking. He is coming from a skilled nursing and has been admitted for vertigo. During evaluation, the patient is somewhat confused, he knew he is in the hospital and the situation he is in, however, he did not know the date. He has a history of depression and anxiety. He has been prescribed trazodone the hospital, medication to be restarted. The patient had difficulty with sleeping and anxiety. No suicidal or homicidal ideations. No psychotic symptoms. He has cognitive impairment. PAST PSYCHIATRIC HISTORY: Depression and anxiety. The patient was prescribed trazodone 50 mg bedtime. PAST MEDICAL HISTORY: Diabetes type 2, hypertension, hypercholesterolemia, and BPV. ALLERGIES: No known drug allergies. MENTAL STATUS EXAMINATION: The patient is alert and oriented times self, place, and situation. Mood is dysphoric. Affect is constricted, congruent with mood. Thought process is concrete. Thought content, no suicidal or homicidal ideation. Cognition is mildly impaired. ASSESSMENT: AXIS I Anxiety disorder, depression. AXIS II Deferred. AXIS III As above. PLAN: 1. The patient will be started on trazodone 50 mg at bedtime. 2. Provide the patient with supportive therapy and reality orientation. Radha Celis M.D. DR: NORA JOB#: [id number] CC:
[2017-08-31 08:00] VITALS: BP 141/75
[2017-08-31] MEDS: Metoprolol Succinate XL 50mg tab ORAL SCH (09:21)
[2017-08-31] MEDS: Losartan 50mg tab ORAL SCH (09:22)
[2017-08-31] MEDS: Heparin 5000 units/ml inj SUBQ SCH (09:22)
[2017-08-31 12:00] VITALS: BP 141/75
--- NOTE | 2017-08-31 13:23 | Pulmonology Progress Note ---
Assessment/Plan Problems: (1) Dizziness (2) COPD (chronic obstructive pulmonary disease) (3) HTN (hypertension) (4) Dementia (5) Unsteady gait Assessment/Plan improving all noted echo reviewed no new complains Subjective ROS Limited/Unobtainable: No Constitutional: Reports: no symptoms HEENT: Repors: no symptoms Respiratory: Reports: no symptoms Allergies: Coded Allergies: No Known Allergies (Unverified , 04/17/17) Objective Last 24 Hour Vital Signs Date Time Temp Pulse Resp B/P (MAP) Pulse Ox O2 Delivery O2 Flow Rate FiO2 08/31/17 12:00 98.2 93 18 141/75 97 Room Air 98.2 08/31/17 09:22 141/75 08/31/17 09:21 71 141/75 08/31/17 08:00 97.7 71 18 141/75 94 97.7 08/31/17 04:00 Room Air 08/31/17 00:00 Room Air 08/31/17 00:00 97.7 62 18 127/63 95 97.7 08/30/17 20:00 Room Air 08/30/17 20:00 97.7 63 18 152/79 94 97.7 08/30/17 18:30 55 144/72 Intake and Output 08/30/17 08/31/17 19:00 07:00 Intake Total 200 ml 250 ml Balance 200 ml 250 ml Intake Oral 200 ml 250 ml # Voids 2 3 General Appearance: WD/WN, no acute distress Respiratory/Chest: chest wall non-tender, lungs clear, normal breath sounds Cardiovascular: normal peripheral pulses, normal rate Abdomen: normal bowel sounds, no organomegaly Neurologic/Psychiatric: hook tender II-XII grossly normal Microbiology Date/Time Source Procedure Growth Status 08/29/17 14:15 Blood Blood Culture - Preliminary NO GROWTH AFTER 24 HOURS Resulted 08/29/17 14:15 Blood Blood Culture - Preliminary NO GROWTH AFTER 24 HOURS Resulted 08/29/17 17:40 Nasal Nares MRSA Culture - Final NO METHICILLIN RESISTANT STAPH AUREUS... Complete 08/29/17 17:40 Rectum VRE Culture - Final NO VANCOMYCIN RESISTANT ENTEROCOCCUS ... Complete Laboratory Tests 08/30/17 17:00: Troponin I 0.007 Current Medications Medications (Trade) Dose Ordered Sig/Jaqueline Route PRN Reason Start Time Stop Time Status Last Admin Dose Admin Atorvastatin Calcium (Lipitor) 10 mg BEDTIME ORAL 08/30/17 21:00 09/29/17 20:59 08/30/17 20:54 Heparin Sodium (Porcine) (Heparin 5000 units/ml) 5,000 units EVERY 12 HOURS SUBQ 08/30/17 09:00 09/29/17 08:59 08/31/17 09:22 Losartan Potassium (Cozaar) 100 mg DAILY ORAL 08/30/17 09:00 09/29/17 08:59 08/31/17 09:22 Magnesium Hydroxide (Mom) 30 ml DAILYPRN PRN ORAL Constipation 08/29/17 22:30 09/28/17 22:29 Meclizine HCl (Antivert) 12.5 mg BID PRN ORAL for dizziness 08/29/17 22:30 09/28/17 22:29 08/30/17 09:18 Metoprolol Succinate (Toprol XL) 25 mg BID ORAL 08/30/17 09:00 09/29/17 08:59 08/31/17 09:21 Non-Formulary Medication (Non-Formulary Med) 1 ea DAILY ORAL 08/30/17 09:00 09/29/17 08:59 UNV Ondansetron HCl (Zofran) 4 mg Q6H PRN IVP Nausea & Vomiting 08/29/17 22:30 09/28/17 22:29 Pantoprazole (Protonix) 40 mg DAILY ORAL 08/30/17 09:00 09/29/17 08:59 08/31/17 09:22 Trazodone HCl (Desyrel) 50 mg BEDTIME ORAL 08/30/17 21:00 09/29/17 20:59 08/30/17 20:54 Lizeth Gupta MD August 31, 2017 13:23
--- NOTE | 2017-09-01 08:34 | Discharge Summary ---
Discharge Summary Discharge Summary _ DATE OF ADMISSION: 08/29/2017 DATE OF DISCHARGE: 08/31/2017 REASON FOR ADMISSION: 81 years old male with past medical history significant for hypertension, diabetes mellitus type 2, high cholesterol, BPV, resident of assisted living facility, presented with dizziness and unsteady gait. He reported that the room was spinning and he was unable to walk. Patient reported having this problem in the past but this time it was worse. He denied headaches. He denied slurred speech or facial droop. He denied arm or leg numbness and weakness. He denied chest pain and shortness of breath. Vital signs reveal elevated blood pressure 188/84. CT of the head revealed no acute intracranial pathology but demonstrated old right lacunar infarct and moderate atrophy Troponin was negative. Chest x-ray revealed no acute cardiopulmonary pathology. No leukocytosis, stable hemoglobin and hematocrit, electrolytes and renal parameters. EKG revealed sinus bradycardia with heart rate of 57 and first degree AV block ,no acute ischemic changes. Patient admitted with diagnosis of intractable dizziness, unsteady gait, diabetes mellitus, hypertension, high cholesterol, CONSULTANTS: powerhouse electrician Dr. Pablo pulmonary Dr. Gupta psychiatrist Dr. Celis [facility]SE: Patient admitted to telemetry floor. Patient was on gentle cautious hydration. Patient was started on meclizine on an as needed basis. Associate Field Service Engineer and buttonhole maker closely followed. Serial troponin 2 were negative. EKG revealed no acute ischemic changes. Patient was ruled out for acute ND. No evidence of arrhythmias on telemetry. Echocardiogram revealed preserved ejection fraction of 60-65%, normal left ventricular chamber size, systolic function and wall motion, no evidence of left ventricular hypertrophy, no evidence of pericardial effusion. Moderate aortic regurgitation was noted. Blood pressure was managed with current regimen of antihypertensive medications. Blood pressure stable. Blood sugar was closely monitored, remained stable. Statin was continued. DVT and GI prophylaxis provided. Supplemental oxygen provided as needed to keep pulse oximetry above 92%. Patient was working with physical therapist. Fall precautions were maintained. Psychiatrist seen and evaluated the patient and diagnosed patient with depression, anxiety and insomnia. Patient was placed on trazodone at nighttime. Supportive therapy and reality orientation provided. Patient condition clinically improved. Patient was stable for transfer back to assisted living FINAL DIAGNOSES: Intractable dizziness with history of BPV- improved Unsteady gait Diabetes mellitus type 2 Hypertension Dementia COPD Hypercholesterolemia Depression Anxiety Insomnia DISCHARGE MEDICATIONS: See Medication Reconciliation list. DISCHARGE INSTRUCTIONS: Patient was discharged to assisted living. Follow up with primary care provider in one week. Encouraged liberal hydration. I have been assigned to dictate discharge summary for this account. I was not involved in the patient's management. Christen Baldwin NP September 01, 2017 08:34
--- NOTE | 2017-09-03 10:12 | Cardiology Report ---
APPROVED REPORT EXAM: Two-dimensional and M-mode echocardiogram with Doppler and color Doppler. INDICATION LV FUNCTION M-Mode DIMENSIONS IVSd1.1 (0.7-1.1cm)Left Atrium (MM)3.8 (1.6-4.0cm) LVDd4.3 (3.5-5.6cm)Aortic Root4.2 (2.0-3.7cm) PWd1.2 (0.7-1.1cm)Aortic Cusp Exc.1.8 (1.5-2.0cm) IVSs1.8 cm LVDs2.7 (2.5-4.0cm) PWs1.2 cm Normal left ventricular chamber size, systolic function and wall motion. Left ventricular ejection fraction estimated to be 60-65 %. No evidence of left ventricular hypertrophy. No evidence of pericardial effusion. All other cardiac chamber sizes are within normal limits. Moderately Focal aortic valve sclerosis with adequate cusp excursion. Moderately Thickened mitral valve leaflets with normal excursion. Mitral annulus and aortic root calcification. Normal pulmonic valve structure. Normal tricuspid valve structure. IVC at normal size without physiologic collapse. A color flow and spectral Doppler study was performed and revealed: Moderate aortic regurgitation. Mild mitral regurgitation. Mitral diastolic velocities suggest reduced left ventricular relaxation c/w mild LV diastolic dysfunction (Grade I ). Trace tricuspid regurgitation. Tricuspid systolic velocities suggests peak right ventricular systolic pressure of 23 mmHg Trace Pulmonic regurgitation present.
== END 2017-08-31 14:00 | disposition home or self-care (01) | DRG 149 ==
LOC: EDBD 13:36 → EMR 14:26 → EDBEDREQ 14:29 → 4W 15:54 → EDBEDREQ 16:32 → 4W 22:38
DX: R42 Dizziness and giddiness (principal); I10 Essential (primary) hypertension; E11.9 Type 2 diabetes mellitus without complications; E78.00 Pure hypercholesterolemia, unspecified; F41.9 Anxiety disorder, unspecified; F32.9 Major depressive disorder, single episode, unspecified; J44.9 Chronic obstructive pulmonary disease, unspecified; R00.1 Bradycardia, unspecified; I44.0 Atrioventricular block, first degree; R26.81 Unsteadiness on feet; F03.90 Unspecified dementia, unspecified severity, without behavioral disturbance, psychotic disturbance, mood disturbance, and anxiety; G47.00 Insomnia, unspecified; I34.0 Nonrheumatic mitral (valve) insufficiency
CPT/HCPCS: 36415; 70450; 71045; 80048; 80053; 81003; 82550; 82553; 83605; 83690; 83735; 83880; 84100; 84484; 85025; 87040; 87081; 93005; 93306; 93880; 99285

== ENCOUNTER 2017-09-05 10:15 | Inpatient (IN) | payer MEDICARE, MEDICAID ==
[~2017-09-05] VITALS: Ht 165.1 cm; Wt 68.0 kg
[~2017-09-05 10:15] MED LIST changes: +CLOPIDOGREL75 MG ORAL; +COLCRYS0.6 M1 PO; +CYANOCOBAL1000 MCG/2 IJ; +LOSARTAN-HCTZ1 EAC2 ORAL; +MECLIZINE HCL12.5 MG ORAL; +METOPROLOL SUCC25 MG ORAL; +MILK OF MA400 MG/51 ORAL; +NAMZARIC 28 MG1 EACH PO; +PROTONIX20 MG ORAL; +TRAZODONE HCL50 MG ORAL; +VITAMIN D22000 UNIT PO; +ZOCOR20 M1 ORAL
[2017-09-05] MEDS ORDERED: METFORMIN HCL500 M1 ORAL (10:20)
[2017-09-05] MEDS ORDERED: HYZAAR 50-12.51 EACH ORAL (10:20)
[2017-09-05] MEDS ORDERED: EXELON1 EACH TD (10:20)
[2017-09-05] MEDS ORDERED: ARICEPT5 MG ORAL (10:20)
[2017-09-05] MEDS ORDERED: Sodium Chloride 500ML 500 ML IV ONE (10:25)
[2017-09-05 10:29] VITALS: BP 211/76
[2017-09-05] MEDS ORDERED: Isovue-300 100ml vial INJ PRN (10:45)
[2017-09-05 10:47] LABS: BASOPHILS % (AUTO) 1.3 % (0.0-2.0); EOSINOPHILS % (AUTO) 1.5 % (0.0-3.0); HEMATOCRIT 42.6 % (42.0-52.0); HEMOGLOBIN 14.4 G/DL (14.2-18.0); LYMPHOCYTES % (AUTO) 31.7 % (20.0-45.0); MEAN CORPUSCULAR VOLUME 91 FL (80-99); MONOCYTES % (AUTO) 6.8 % (1.0-10.0); NEUTROPHILS % (AUTO) 58.6 % (45.0-75.0); PLATELET COUNT 279 K/UL (150-450); RED BLOOD COUNT 4.68 M/UL (4.70-6.10); RED CELL DISTRIBUTION WIDTH 12.8 % (11.6-14.8); WHITE BLOOD COUNT 11.1 K/UL (4.8-10.8)
--- NOTE | 2017-09-05 11:03 | Diagnostic Imaging Report ---
Indication: Chest pain Comparison: 08/29/2017 A single view chest radiograph was obtained. Findings: The heart is enlarged. The aorta is enlarged and slightly ectatic. Bones are osteopenic. Interstitium of the lung is slightly prominent which is probably chronic. There is minimal left basal atelectasis obscuring the diaphragm. IMPRESSION: No acute disease
[2017-09-05 11:25] LABS: ANION GAP 11 mmol/L (5-15); BLOOD UREA NITROGEN 18 mg/dL (7-18); CALCIUM 9.5 MG/DL (8.5-10.1); CARBON DIOXIDE 27 MMOL/L (21-32); CHLORIDE 101 MMOL/L (98-107); CREATININE 0.9 MG/DL (0.55-1.30); POTASSIUM 3.2 MMOL/L (3.5-5.1); SODIUM 139 MMOL/L (136-145)
--- NOTE | 2017-09-05 11:32 | Emergency Room Report ---
History of Present Illness General Chief Complaint: Vomiting Source: Patient, EMS Present Illness HPI Patient [facility] from adult [facility] center Patient was found to have increased nausea vomiting This started just prior to arrival Patient denies any abdominal pain Denies any fever Denies any back or flank pain Unaware of any recent change in medications Allergies: Coded Allergies: No Known Allergies (Unverified , 04/17/17) Patient History Past Medical History: see triage record Pertinent Family History: none Reviewed Nursing Documentation: PMH: Agreed; PSxH: Agreed Nursing Documentation-PMH Past Medical History: No History, Except For Hx Cardiac Problems: Yes Hx Hypertension: Yes Hx Diabetes: Yes Hx Cancer: No Hx Gastrointestinal Problems: No Hx Neurological Problems: No Review of Systems All Other Systems: negative except mentioned in HPI Physical Exam Vital Signs Date Time Temp Pulse Resp B/P (MAP) Pulse Ox O2 Delivery O2 Flow Rate FiO2 09/05/17 10:09 60 20 193/92 99 Room Air Sp02 EP Interpretation: reviewed, normal General Appearance: mild distress - Actively nauseated, appears uncomfortable Head: normocephalic, atraumatic Eyes: bilateral eye PERRL, bilateral eye EOMI ENT: hearing grossly normal, normal pharynx, TMs + canals normal, uvula midline Neck: full range of motion, supple, no meningismus, no bony tend Respiratory: lungs clear, normal breath sounds, no rhonchi, no respiratory distress, no retraction, no accessory muscle use Cardiovascular #1: normal peripheral pulses, regular rate, rhythm, no edema, no gallop, no JVD, no murmur Gastrointestinal: normal bowel sounds, non tender, soft, no mass, no organomegaly, non-distended, no guarding, no hernia, no pulsatile mass, no rebound Genitourinary: no CVA tenderness Musculoskeletal: normal inspection Neurologic: oriented x3, responsive, 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, motor strength/ tone normal, sensory intact Psychiatric: mood/affect normal Skin: normal color, no rash, warm/dry, palpation normal Lymphatic: normal inspection, no adenopathy Medical Decision Making Diagnostic Impression: Primary Impression: Vomiting Additional Impression: Abdominal pain ER Course With the history exam and presentation, multiple differentials considered, including but not limited to appendicitis, gastritis, cholecystitis, diverticulitis Given the patient's age and presentation with the vomiting neurological pathology also entertained Patient's CT imaging is read as fairly benign by radiology Patient however continues to have bilious vomitus NG tube has been placed further pain medication Admission to the hospital GI specialty consulted Gen. surgery consulted Labs Test 09/05/17 10:30 09/05/17 11:17 White Blood Count 11.1 K/UL (4.8-10.8) Red Blood Count 4.68 M/UL (4.70-6.10) Hemoglobin 14.4 G/DL (14.2-18.0) Hematocrit 42.6 % (42.0-52.0) Mean Corpuscular Volume 91 FL (80-99) Mean Corpuscular Hemoglobin 30.8 PG (27.0-31.0) Mean Corpuscular Hemoglobin Concent 33.8 G/DL (32.0-36.0) Red Cell Distribution Width 12.8 % (11.6-14.8) Platelet Count 279 K/UL (150-450) Mean Platelet Volume 8.4 FL (6.5-10.1) Neutrophils (%) (Auto) 58.6 % (45.0-75.0) Lymphocytes (%) (Auto) 31.7 % (20.0-45.0) Monocytes (%) (Auto) 6.8 % (1.0-10.0) Eosinophils (%) (Auto) 1.5 % (0.0-3.0) Basophils (%) (Auto) 1.3 % (0.0-2.0) Sodium Level 139 MMOL/L (136-145) Potassium Level 3.2 MMOL/L (3.5-5.1) Chloride Level 101 MMOL/L (98-107) Carbon Dioxide Level 27 MMOL/L (21-32) Anion Gap 11 mmol/L (5-15) Blood Urea Nitrogen 18 mg/dL (7-18) Creatinine 0.9 MG/DL (0.55-1.30) Estimat Glomerular Filtration Rate mL/min (>60) Glucose Level 211 MG/DL (74-106) Calcium Level 9.5 MG/DL (8.5-10.1) Total Bilirubin 0.7 MG/DL (0.2-1.0) Aspartate Amino Transf (AST/SGOT) 23 U/L (15-37) Alanine Aminotransferase (ALT/SGPT) 35 U/L (12-78) Alkaline Phosphatase 54 U/L (46-116) Total Creatine Kinase 70 U/L (26-308) Creatine Kinase MB 1.6 NG/ML (0.0-3.6) Creatine Kinase MB Relative Index 2.2 Troponin I 0.000 ng/mL (0.000-0.056) Total Protein 8.1 G/DL (6.4-8.2) Albumin 4.2 G/DL (3.4-5.0) Globulin 3.9 g/dL Albumin/Globulin Ratio 1.1 (1.0-2.7) Lipase 148 U/L (73-393) Urine Color Pale yellow Urine Appearance Clear Urine pH 5 (4.5-8.0) Urine Specific [place] 1.020 (1.005-1.035) Urine Protein 3+ (NEGATIVE) Urine Glucose (UA) 2+ (NEGATIVE) Urine Ketones Negative (NEGATIVE) Urine Occult Blood 2+ (NEGATIVE) Urine Nitrite Negative (NEGATIVE) Urine Bilirubin Negative (NEGATIVE) Urine Urobilinogen Normal MG/DL (0.0-1.0) Urine Leukocyte Esterase Negative (NEGATIVE) Urine RBC 5-10 /HPF (0 - 0) Urine WBC 0-2 /HPF (0 - 0) Urine Squamous Epithelial Cells Few /LPF (NONE/OCC) Urine Bacteria Few /HPF (NONE) Rhythm Strip Diag. Results EP Interpretation: yes Rate: 77 Rhythm: NSR, no PVC's, no ectopy Chest X-Ray Diagnostic Results Chest X-Ray Diagnostic Results : Chest X-Ray Ordered: Yes # of Views/Limited/Complete: 1 View Indication: Chest Pain EP Interpretation: Yes Interpretation: no consolidation, no effusion, no pneumothorax Impression: No acute disease Electronically Signed by: Merle Allen, CT/MRI/US Diagnostic Results CT/MRI/US Diagnostic Results : Impression CT abdomen pelvisIMPRESSION: No acute findings in the abdomen or pelvis identified. Diverticulosis of the colon. No definite acute diverticulitis. Status post cholecystectomy Suspected liver hemangioma in the right lobe. Atherosclerotic disease Small left inguinal hernia containing fat Status post prostatectomy. Bilateral renal cysts. Duodenal diverticulum Degenerative changes of the spine CT headImpression: No acute intracranial bleed, mass effect or edema. Moderate atrophy of the brain. Evidence of chronic small vessel disease involving white matter tracts. Last Vital Signs Date Time Temp Pulse Resp B/P (MAP) Pulse Ox O2 Delivery O2 Flow Rate FiO2 09/05/17 10:29 66 20 211/76 93 Room Air Status: improved Disposition: ADMITTED INPATIENT Condition: Serious Referrals: NOT CHOSEN IPA/,REFERRING (PCP) Merle Allen DO September 05, 2017 11:32
[2017-09-05 11:38] LABS: ALANINE AMINOTRANSFERASE 35 U/L (12-78); ALBUMIN 4.2 G/DL (3.4-5.0); ALBUMIN/GLOBULIN RATIO 1.1 (1.0-2.7); ALKALINE PHOSPHATASE 54 U/L (46-116); ASPARTATE AMINO TRANSFERASE 23 U/L (15-37); BILIRUBIN,TOTAL 0.7 MG/DL (0.2-1.0); CKMB 1.6 NG/ML (0.0-3.6); CREATINE KINASE 70 U/L (26-308)
[2017-09-05 12:06] LABS: APPEARANCE,URINE CLEAR; BILIRUBIN, URINE NEGATIVE (NEGATIVE); COLOR,URINE PALE YELLOW; GLUCOSE, URINE (UA) 2+ (NEGATIVE); KETONES,URINE NEGATIVE (NEGATIVE); LEUKOCYTE ESTERASE ,URINE NEGATIVE (NEGATIVE); NITRITE,URINE NEGATIVE (NEGATIVE); PH,URINE 5 (4.5-8.0); PROTEIN,URINE 3+ (NEGATIVE); UROBILINOGEN,URINE NORMAL MG/DL (0.0-1.0)
--- NOTE | 2017-09-05 12:13 | Diagnostic Imaging Report ---
Indication: Abdominal pain Technique: Continuous helical transaxial imaging of the abdomen and pelvis was obtained from the lung bases to the pubic symphysis during intravenous contrast administration. Coronal 2-D reformats were also obtained. Study obtained in a Siemens sensation [address] Automatic Exposure Control was utilized. Total Dose length Product (DLP): 637.[address] Dose Index Volume (CTDIvol): 12.03 mGy Comparison: None Findings: Reticular densities are present at the lung bases likely mild atelectasis. There is cardiomegaly present. Coronary calcifications and calcification involving the wall of aorta noted. There is a small hiatal hernia. There is a hemangioma measuring 2.6 cm in the posterior part of the right lobe of the liver. The study was not done as a hemangioma protocol but the findings even obtained on this single phase or compelling with nodular enhancement noted along the periphery of the mass. Cholecystectomy noted. The stomach is nondistended. The pancreas and spleen appear unremarkable. There is a duodenal diverticulum. There are diverticula throughout the colon. There is no definite diverticulitis appreciated. The urinary bladder is mildly distended. There is a small left inguinal hernia containing fat. There are surgical clips in the area of the prostate gland consistent with previous prostatectomy. There is no lymphadenopathy identified within the abdomen or pelvis. Both kidneys enhance normally. There are bilateral renal cysts present. The largest cyst is 3.5 cm in the right kidney. The appendix is not seen. There are no signs of acute appendicitis. There is narrowing of intervertebral discs and accompanying endplate osteophyte formation. Hypertrophied facet joints also demonstrated. IMPRESSION: No acute findings in the abdomen or pelvis identified. Diverticulosis of the colon. No definite acute diverticulitis. Status post cholecystectomy Suspected liver hemangioma in the right lobe. Atherosclerotic disease Small left inguinal hernia containing fat Status post prostatectomy. Bilateral renal cysts. Duodenal diverticulum Degenerative changes of the spine The CT scanner at [facility] is accredited by the [employer] and the scans are performed using dose optimization techniques as appropriate to a performed exam including Automatic Exposure control.
--- NOTE | 2017-09-05 12:14 | Diagnostic Imaging Report ---
Indication: Headache Technique: Contiguous 5 mm thick transaxial imaging of the head obtained in a Siemens Sensation [address] scanner. Soft tissue and bone windows generated. Automatic Exposure Control was utilized. Total Dose length Product (DLP): 1340.[address] Dose Index Volume (CTDIvol): 70.38 mGy Comparison: 08/29/2017 Findings: There is moderate prominence of the ventricles, basal cisterns, and cerebral sulci consistent with atrophy. Moderate, nonspecific, white matter hypoattenuation is noted throughout the brain consistent with chronic small vessel disease. There is no midline shift, edema, acute hemorrhage, mass effect, or abnormal extra-axial fluid collections. Bones and extra osseous soft tissues are unremarkable. Impression: No acute intracranial bleed, mass effect or edema. Moderate atrophy of the brain. Evidence of chronic small vessel disease involving white matter tracts. The CT scanner at [facility] is accredited by the [employer] and the scans are performed using dose optimization techniques as appropriate to a performed exam including Automatic Exposure control.
[2017-09-05] MEDS ORDERED: LORazepam Inj 2mg/ml 1ml IV ONE (12:45)
[2017-09-05] MEDS ORDERED: Morphine Sulfate 4mg/ml Inj IVP ONE (12:45)
[2017-09-05 14:50] VITALS: BP 193/84
--- NOTE | 2017-09-05 16:20 | History & Physical ---
History and Physical History & Physicial #[id number] Dx: N/V and Dizziness likely vertigo Prox SI bowel thickening without SBO plan NPO IVF SHIRLEY Walker M.D. September 05, 2017 16:20
[2017-09-05 16:21] VITALS: BP 165/70
[2017-09-05] MEDS ORDERED: Meclizine 25mg tab ORAL PRN (16:30)
--- NOTE | 2017-09-05 17:48 | Consultation ---
History of Present Illness General Date patient seen: September 05, 2017 Chief Complaint: Vomiting Present Illness HPI 81-year-old male with history of "dementia", hypertension, hyperlipidemia, diverticulosis, and history of cholecystectomy, who was admitted for dizziness/ vertigo for the past three months. the pt was told "it's psychological." The pt was pleasant and was able to answer the questions appropriately. the pt has some anxiety and taking trazodone for insomnia. Allergies: Coded Allergies: No Known Allergies (Unverified , 04/17/17) Medication History Scheduled Clopidogrel* (Clopidogrel*), 75 MG ORAL DAILY, (Reported) Colchicine (Colcrys), 0.6 MG PO DAILY, (Reported) Cyanocobalamin (Vitamin B-12) (Cyanocobalamin Injection), 1,000 MCG IJ ONCE A WEEK, (Reported) Cyclobenzaprine Hcl* (Flexeril*), 10 MG ORAL THREE TIMES A DAY, (Reported) Donepezil Hcl* (Aricept*), Unknown Dose ORAL DAILY, (Reported) Ergocalciferol (Vitamin D2) (Vitamin D2), 50,000 UNIT PO ONCE A WEEK, (Reported) Losartan/Hydrochlorothiazide (Losartan-Hctz 50-12.5 Mg Tab), 1 TAB ORAL DAILY, ( Reported) Losartan/Hydrochlorothiazide 100-12.5 Tablet (Hyzaar 100-12.5 Tablet), 1 TAB ORAL DAILY, (Reported) Losartan/Hydrochlorothiazide 50-12.5 Tablet* (Hyzaar 50-12.5 Tablet*), Unknown Dose ORAL DAILY, (Reported) Magnesium Hydroxide* (Milk Of Magnesia*), 30 ML ORAL DAILY, (Reported) Meclizine Hcl* (Meclizine*), 12.5 MG ORAL BID, (Reported) Memantine HCl/Donepezil HCl (Namzaric 28 mg-10 mg Capsule), 1 EACH PO DAILY, ( Reported) Metformin Hcl* (Metformin Hcl*), Unknown Dose ORAL TWICE A DAY, (Reported) Metoprolol Succinate* (Metoprolol Succinate*), 25 MG ORAL DAILY, (Reported) Pantoprazole Sodium (Protonix), 40 MG ORAL DAILY, (Reported) Ranitidine Hcl* (Zantac*), 150 MG ORAL TWICE A DAY Rivastigmine Tartrate (Rivastigmine), 4.5 MG PO DAILY, (Reported) Simvastatin (Zocor), 20 MG ORAL DAILY, (Reported) Simvastatin (Zocor), 20 MG ORAL BEDTIME, (Reported) Trazodone Hcl* (Desyrel*), 50 MG ORAL BEDTIME, (Reported) Scheduled PRN Hydrocodone Bit/Acetaminophen 5-325* ([place] 5-325*), 1 TAB ORAL Q6H PRN for For Pain, (Reported) Ondansetron Odt* (Zofran Odt*), 4 MG ORAL Q6H PRN for Nausea & Vomiting Miscellaneous Medications Rivastigmine (Exelon), Unknown Dose TD, (Reported) Patient History History Provided By: Patient, Medical Record, PMD Healthcare decision maker Resuscitation status Advanced Directive on File Past Medical/Surgical History Past Medical/Surgical History: (1) Gastroenteritis (2) Dementia (3) HTN (hypertension) (4) COPD (chronic obstructive pulmonary disease) (5) Hypercholesteremia (6) Vertigo (7) Abdominal pain (8) Vomiting (9) Intractable vomiting Review of Systems Psychiatric: Reports: prior hx, anxiety Physical Exam General Appearance: no apparent distress, alert Neurologic: oriented x 3, responsive, depressed affect Last 24 Hour Vital Signs Date Time Temp Pulse Resp B/P (MAP) Pulse Ox O2 Delivery O2 Flow Rate FiO2 09/05/17 16:24 98.0 83 14 165/70 94 Room Air 98.0 09/05/17 16:21 98.0 90 14 165/70 93 Room Air 98.0 09/05/17 14:50 90 14 193/84 93 Room Air 09/05/17 14:18 173/88 09/05/17 10:29 66 20 211/76 93 Room Air 09/05/17 10:09 60 20 193/92 99 Room Air Laboratory Tests Test 09/05/17 10:30 09/05/17 11:17 White Blood Count 11.1 K/UL (4.8-10.8) H Red Blood Count 4.68 M/UL (4.70-6.10) L Hemoglobin 14.4 G/DL (14.2-18.0) Hematocrit 42.6 % (42.0-52.0) Mean Corpuscular Volume 91 FL (80-99) Mean Corpuscular Hemoglobin 30.8 PG (27.0-31.0) Mean Corpuscular Hemoglobin Concent 33.8 G/DL (32.0-36.0) Red Cell Distribution Width 12.8 % (11.6-14.8) Platelet Count 279 K/UL (150-450) Mean Platelet Volume 8.4 FL (6.5-10.1) Neutrophils (%) (Auto) 58.6 % (45.0-75.0) Lymphocytes (%) (Auto) 31.7 % (20.0-45.0) Monocytes (%) (Auto) 6.8 % (1.0-10.0) Eosinophils (%) (Auto) 1.5 % (0.0-3.0) Basophils (%) (Auto) 1.3 % (0.0-2.0) Sodium Level 139 MMOL/L (136-145) Potassium Level 3.2 MMOL/L (3.5-5.1) L Chloride Level 101 MMOL/L (98-107) Carbon Dioxide Level 27 MMOL/L (21-32) Anion Gap 11 mmol/L (5-15) Blood Urea Nitrogen 18 mg/dL (7-18) Creatinine 0.9 MG/DL (0.55-1.30) Estimat Glomerular Filtration Rate mL/min (>60) Glucose Level 211 MG/DL (74-106) H Calcium Level 9.5 MG/DL (8.5-10.1) Total Bilirubin 0.7 MG/DL (0.2-1.0) Aspartate Amino Transf (AST/SGOT) 23 U/L (15-37) Alanine Aminotransferase (ALT/SGPT) 35 U/L (12-78) Alkaline Phosphatase 54 U/L (46-116) Total Creatine Kinase 70 U/L (26-308) Creatine Kinase MB 1.6 NG/ML (0.0-3.6) Creatine Kinase MB Relative Index 2.2 Troponin I 0.000 ng/mL (0.000-0.056) Total Protein 8.1 G/DL (6.4-8.2) Albumin 4.2 G/DL (3.4-5.0) Globulin 3.9 g/dL Albumin/Globulin Ratio 1.1 (1.0-2.7) Lipase 148 U/L (73-393) Urine Color Pale yellow Urine Appearance Clear Urine pH 5 (4.5-8.0) Urine Specific [place] 1.020 (1.005-1.035) Urine Protein 3+ (NEGATIVE) H Urine Glucose (UA) 2+ (NEGATIVE) H Urine Ketones Negative (NEGATIVE) Urine Occult Blood 2+ (NEGATIVE) H Urine Nitrite Negative (NEGATIVE) Urine Bilirubin Negative (NEGATIVE) Urine Urobilinogen Normal MG/DL (0.0-1.0) Urine Leukocyte Esterase Negative (NEGATIVE) Urine RBC 5-10 /HPF (0 - 0) H Urine WBC 0-2 /HPF (0 - 0) Urine Squamous Epithelial Cells Few /LPF (NONE/OCC) Urine Bacteria Few /HPF (NONE) Height (Feet): 5 Height (Inches): 5.00 Weight (Pounds): 150 Medications Current Medications Medications (Trade) Dose Ordered Sig/Jaqueline Route PRN Reason Start Time Stop Time Status Last Admin Dose Admin Acetaminophen (Tylenol) 650 mg Q4H PRN ORAL Mild Pain (Pain Scale 1-3) 09/05/17 16:30 10/05/17 16:29 Dextrose (Dextrose 50%) 25 ml STAT PRN IV Hypoglycemia 09/05/17 16:30 10/05/17 16:29 Dextrose (Dextrose 50%) 50 ml STAT PRN IV Hypoglycemia 09/05/17 16:30 10/05/17 16:29 Dextrose/Sodium Chloride 1,000 ml @ 75 mls/hr [id number] IV 09/05/17 17:20 10/05/17 17:19 Heparin Sodium (Porcine) (Heparin 5000 units/ml) 5,000 units EVERY 12 HOURS SUBQ 09/05/17 21:00 10/05/17 20:59 Hydralazine HCl (Apresoline) 10 mg Q4HR PRN IV sbp> 160 09/05/17 16:30 10/05/17 16:29 UNV Iopamidol (Isovue-300 100ml) 100 ml NOW PRN INJ Radiology Procedure 09/05/17 10:45 Meclizine HCl (Antivert) 25 mg Q6H PRN ORAL for dizziness 09/05/17 16:30 10/05/17 16:29 Assessment/Plan Assessment/Plan Anxiety d/o ?dementia? the pt is not suffering from somatoform disorder the pt diziness/vertigo could be due to four meds that was discontinued. Aricept/Namenda/Flexeril/trazodone and Exelon Remeron 15mg qhs Radha Celis M.D. September 05, 2017 17:48
[2017-09-05] MEDS: D5NS 1,000 ML IV SCH (18:51)
[2017-09-05] MEDS ORDERED: HydrALAZINE 25mg tab ORAL PRN (19:45)
[2017-09-05 20:00] VITALS: BP 139/81
[2017-09-05] MEDS ORDERED: Heparin 5000 units/ml inj SUBQ SCH (21:00)
[2017-09-06] VITALS: BP 105/62
--- NOTE | 2017-09-06 03:31 | History and Physical Report ---
DATE OF ADMISSION: 09/05/2017 CHIEF COMPLAINT: Nausea, vomiting, and dizziness. HPI: This is an 81-year-old male with history of hypertension, hyperlipidemia, diverticulosis, and history of cholecystectomy, who presents to the emergency room for dizziness that started today. The patient reports having severe dizziness every time he moves his head associated with nausea and vomiting. He says that he vomited four times today. He denies any tinnitus. He also reports some abdominal pain. He states that his abdominal pain is mild. He was unable to participate in adult daycare and is coming today because of his nausea, vomiting, and dizziness. He had a CT abdomen in the emergency room that revealed no small bowel obstruction with stool throughout. There is area of thickened small intestine, in proximal intestine. However, this test was done without contrast because the patient was unable to tolerate contrast. The patient denies any chest pain or shortness of breath. PAST MEDICAL HISTORY: Includes hypertension, hyperlipidemia, and diverticulosis. PAST SURGICAL HISTORY: History of cholecystectomy. FAMILY HISTORY: None. SOCIAL HISTORY: The patient does not smoke, drink alcohol, or use any drugs. He is from [facility]. REVIEW OF SYSTEMS: A 12-point review of systems was negative except for the pertinent positives as mentioned above. PHYSICAL EXAMINATION: VITAL SIGNS: Temperature is 98, pulse rate is 60, respiratory rate of 20, blood pressure 183/84, and O2 saturation is 93% on room air. GENERAL: No acute distress. The patient is alert, awake, and oriented x3. HEENT: Normocephalic/atraumatic. NECK: Supple. No JVD. LUNGS: Clear to auscultation bilaterally. No crackles, rhonchi, or rales. CARDIOVASCULAR: Regular rate and rhythm. Normal S1, S2. ABDOMEN: Soft, nontender, and nondistended. EXTREMITIES: No clubbing, cyanosis, or edema. The patient is able to move all extremities 4/5. There is no focal deficits noted on my exam. SKIN: Normal color on inspection. PSYCH: Appropriate mood and affect. LABORATORY AND DIAGNOSTIC DATA: CBC, white count of 11.1, hemoglobin 14.4, and platelet count of 279,000. BMP, sodium is 139, potassium 3.2, chloride 101, CO2 of 27, BUN 15, creatinine 0.9, and glucose is 211. AST is 23, ALT 35, and alkaline phosphatase 64. UA, 5 to 10, rbc's, 2+ occult blood, 2+ glucose, and no protein. EKG shows normal sinus rhythm with no ST changes. Chest x-ray shows no consolidation, effusions, or pneumothorax. Head CT shows no intracranial bleed or evidence of stroke. CT abdomen and pelvis shows no small bowel obstruction. CT abdomen and pelvis only shows diverticulosis. Status post cholecystectomy. Liver hemangioma on the right liver lobe. Small left inguinal hernia. Prostatectomy and diverticulosis. ASSESSMENT: 1. Nausea, vomiting, and dizziness concerning for benign positional vertigo versus less likely ileus/bowel obstruction versus unlikely gastroenteritis. 2. Hypertensive urgency secondary to accelerated hypertension. 3. History of hyperlipidemia. 4. Thickened small intestine. PLAN: 1. The patient to be admitted to Med/Surg. 2. NPO. 3. Meclizine to be started on . 4. Vestibular exercises to be done by physical therapy. 5. Diazepam as needed. 6. CT brain done and no stroke seen. 7. GI is consulted because of thickened proximal small intestine. 8. IV fluids. 9. We will discuss with GI and Surgery if we can remove NG tube given no bowel obstruction. 10. Antiemetics. Emil Roy MD DR: ROBERT JOB#: [id number] CC:
[2017-09-06 04:00] VITALS: BP 116/63
[2017-09-06] MEDS: D5NS 1,000 ML IV SCH ×2 (06:19→20:59)
[2017-09-06 08:00] VITALS: BP 118/59
[2017-09-06 08:13] LABS: ANION GAP 5 mmol/L (5-15); BLOOD UREA NITROGEN 18 mg/dL (7-18); CARBON DIOXIDE 31 MMOL/L (21-32); CHLORIDE 103 MMOL/L (98-107); POTASSIUM 3.7 MMOL/L (3.5-5.1); SODIUM 138 MMOL/L (136-145)
[2017-09-06 08:15] LABS: BASOPHILS % (AUTO) 0.4 % (0.0-2.0); EOSINOPHILS % (AUTO) 0.2 % (0.0-3.0); HEMATOCRIT 37.6 % (42.0-52.0); HEMOGLOBIN 13.1 G/DL (14.2-18.0); LYMPHOCYTES % (AUTO) 13.7 % (20.0-45.0); MEAN CORPUSCULAR VOLUME 90 FL (80-99); MONOCYTES % (AUTO) 8.5 % (1.0-10.0); NEUTROPHILS % (AUTO) 77.2 % (45.0-75.0); PLATELET COUNT 232 K/UL (150-450); RED BLOOD COUNT 4.17 M/UL (4.70-6.10); RED CELL DISTRIBUTION WIDTH 12.7 % (11.6-14.8); WHITE BLOOD COUNT 12.3 K/UL (4.8-10.8)
[2017-09-06] MEDS: Metoprolol Succinate XL 25mg tab ORAL SCH (08:56)
[2017-09-06] MEDS: Meclizine 25mg tab ORAL SCH ×3 (08:59→19:03)
[2017-09-06] MEDS: Milk of Magnesia 30ml Ud ORAL SCH (08:59)
[2017-09-06] MEDS ORDERED: Hyzaar 12.5mg/50mg tab ORAL SCH (09:00)
[2017-09-06] MEDS ORDERED: RIVASTIGMINE4.5 MG PO (10:53)
--- NOTE | 2017-09-06 10:54 | GI Initial Consult Note ---
History of Present Illness General Date patient seen: Sep 06, 2017 Time patient seen: 10:00 Reason for Hospitalization: Vomiting Referring physician: SHIRLEY SNADERSON Reason for Consultation: N/V Present Illness HPI This is an 81-year-old male with history of hypertension, hyperlipidemia, diverticulosis, and history of cholecystectomy, who presents to the emergency room for dizziness that started today. The patient reports having severe dizziness every time he moves his head associated with nausea and vomiting. He says that he vomited four times today. He denies any tinnitus. He also reports some abdominal pain. He states that his abdominal pain is mild. He was unable to participate in adult daycare and is coming today because of his nausea, vomiting, and dizziness. He had a CT abdomen in the emergency room that revealed no small bowel obstruction with stool throughout. There is area of thickened small intestine, in proximal intestine. However, this test was done without contrast because the patient was unable to tolerate contrast. The patient denies any chest pain or shortness of breath. GI consulted for N/V. Pt seen, awake A&O NAD with no active s/sx of N/V. No reports of diarrhea. A Head/AP CT was performed with unremarkable findings. Lipase negative. Patient presented today with mild anemia and hyperglycemia. Unknown history of endoscopy / colonoscopy. Home Meds Active Scripts Ondansetron Odt* (ZOFRAN ODT*) 4 Mg Tab.rapdis, 4 MG ORAL Q6H PRN for Nausea & Vomiting, #30 TAB 0 Refills Prov:Julio Land MD 06/15/16 Ranitidine Hcl* (ZANTAC*) 150 Mg Tablet, 150 MG ORAL TWICE A DAY, #30 TAB Prov:Julio Land MD 06/15/16 Reported Medications Rivastigmine Tartrate (RIVASTIGMINE) 4.5 Mg Capsule, 4.5 MG PO DAILY, CAP 09/06/17 Metformin Hcl* (METFORMIN HCL*) 500 Mg Tablet, ORAL TWICE A DAY, TAB 09/05/17 Rivastigmine (EXELON) 1 Each Patch.td24, TD, PATCH 09/05/17 Losartan/Hydrochlorothiazide 50-12.5 Tablet* (HYZAAR 50-12.5 TABLET*) 1 Each Tablet, ORAL DAILY, TAB 09/05/17 Donepezil Hcl* (ARICEPT*) 5 Mg Tablet, ORAL DAILY, TAB 09/05/17 Ergocalciferol (Vitamin D2) (VITAMIN D2) 2,000 Unit Tablet, 10727 UNIT PO ONCE A WEEK, TAB 08/29/17 Trazodone Hcl* (DESYREL*) 50 Mg Tablet, 50 MG ORAL BEDTIME, TAB 08/29/17 Simvastatin (ZOCOR) 20 Mg Tablet, 20 MG ORAL BEDTIME, TAB 08/29/17 Pantoprazole Sodium (PROTONIX) 20 Mg Tablet.dr, 40 MG ORAL DAILY, TAB 08/29/17 Memantine HCl/Donepezil HCl (Namzaric 28 mg-10 mg Capsule) 1 Each Cap.spr.24, 1 EACH PO DAILY, CAP 08/29/17 Magnesium Hydroxide* (MILK OF MAGNESIA*) 400 Mg/5 Ml Oral.susp, 30 ML ORAL DAILY , ML 08/29/17 Metoprolol Succinate* (METOPROLOL SUCCINATE*) 25 Mg Tab.er.24h, 25 MG ORAL DAILY , TAB 08/29/17 Meclizine Hcl* (MECLIZINE*) 12.5 Mg Tablet, 12.5 MG ORAL BID, TAB 08/29/17 Losartan/Hydrochlorothiazide (LOSARTAN-HCTZ 50-12.5 MG TAB) 1 Each Tablet, 1 TAB ORAL DAILY, TAB 0 Refills 08/29/17 Cyanocobalamin (Vitamin B-12) (CYANOCOBALAMIN INJECTION) 1,000 Mcg/1 Ml Vial, 1000 MCG IJ ONCE A WEEK, VIAL 08/29/17 Colchicine (COLCRYS) 0.6 Mg Tablet, 0.6 MG PO DAILY, TAB 08/29/17 Clopidogrel* (CLOPIDOGREL*) 75 Mg Tablet, 75 MG ORAL DAILY, TAB 08/29/17 Hydrocodone Bit/Acetaminophen 5-325* (NORCO 5-325*) 1 Each Tablet, 1 TAB ORAL Q6H PRN for For Pain, #10 TAB 0 Refills 06/15/16 Cyclobenzaprine Hcl* (FLEXERIL*) 10 Mg Tablet, 10 MG ORAL THREE TIMES A DAY, TAB 06/15/16 Simvastatin (ZOCOR) 20 Mg Tablet, 20 MG ORAL DAILY, TAB 06/15/16 Losartan/Hydrochlorothiazide 100-12.5 Tablet (HYZAAR 100-12.5 TABLET) 1 Each Tablet, 1 TAB ORAL DAILY, TAB 06/15/16 Med list reviewed/reconciled: Yes Allergies: Coded Allergies: No Known Allergies (Unverified , 04/17/17) Patient History Limited by: medical condition History Provided By: Patient, Medical Record [facility] Narrative PAST MEDICAL HISTORY: Includes hypertension, hyperlipidemia, and diverticulosis. PAST SURGICAL HISTORY: History of cholecystectomy. Social History: Denies: smoking, alcohol use, drug use, other Review of Systems All Other Systems: negative except mentioned in HPI Physical Exam Vital Signs Date Time Temp Pulse Resp B/P (MAP) Pulse Ox O2 Delivery O2 Flow Rate FiO2 09/05/17 10:09 60 20 193/92 99 Room Air 09/05/17 16:21 98.0 98.0 Sp02 EP Interpretation: reviewed, normal Labs Laboratory Tests Test 09/05/17 11:17 09/06/17 06:30 Urine Color Pale yellow Urine Appearance Clear Urine pH 5 (4.5-8.0) Urine Specific [place] 1.020 (1.005-1.035) Urine Protein 3+ (NEGATIVE) H Urine Glucose (UA) 2+ (NEGATIVE) H Urine Ketones Negative (NEGATIVE) Urine Occult Blood 2+ (NEGATIVE) H Urine Nitrite Negative (NEGATIVE) Urine Bilirubin Negative (NEGATIVE) Urine Urobilinogen Normal MG/DL (0.0-1.0) Urine Leukocyte Esterase Negative (NEGATIVE) Urine RBC 5-10 /HPF (0 - 0) H Urine WBC 0-2 /HPF (0 - 0) Urine Squamous Epithelial Cells Few /LPF (NONE/OCC) Urine Bacteria Few /HPF (NONE) White Blood Count 12.3 K/UL (4.8-10.8) H Red Blood Count 4.17 M/UL (4.70-6.10) L Hemoglobin 13.1 G/DL (14.2-18.0) L Hematocrit 37.6 % (42.0-52.0) L Mean Corpuscular Volume 90 FL (80-99) Mean Corpuscular Hemoglobin 31.5 PG (27.0-31.0) H Mean Corpuscular Hemoglobin Concent 34.9 G/DL (32.0-36.0) Red Cell Distribution Width 12.7 % (11.6-14.8) Platelet Count 232 K/UL (150-450) Mean Platelet Volume 8.3 FL (6.5-10.1) Neutrophils (%) (Auto) 77.2 % (45.0-75.0) H Lymphocytes (%) (Auto) 13.7 % (20.0-45.0) L Monocytes (%) (Auto) 8.5 % (1.0-10.0) Eosinophils (%) (Auto) 0.2 % (0.0-3.0) Basophils (%) (Auto) 0.4 % (0.0-2.0) Sodium Level 138 MMOL/L (136-145) Potassium Level 3.7 MMOL/L (3.5-5.1) Chloride Level 103 MMOL/L (98-107) Carbon Dioxide Level 31 MMOL/L (21-32) Anion Gap 5 mmol/L (5-15) Blood Urea Nitrogen 18 mg/dL (7-18) Creatinine 1.0 MG/DL (0.55-1.30) Estimat Glomerular Filtration Rate mL/min (>60) Glucose Level 117 MG/DL (74-106) H Calcium Level 9.0 MG/DL (8.5-10.1) General Appearance: well appearing, no apparent distress, alert Head: normocephalic EENT: PERRL/EOMI, normal ENT inspection Neck: supple Respiratory: normal breath sounds, no respiratory distress Cardiovascular: normal rate Gastrointestinal: normal inspection, non tender, soft, normal bowel sounds, non -distended Rectal: deferred Genitourinary: deferred Musculoskeletal: normal inspection, back normal Neurologic: alert, responsive Skin: normal inspection, normal color, no rash, warm/dry, palpation normal, well hydrated Lymphatic: normal inspection, no adenopathy Current Medications Current Medications Medications (Trade) Dose Ordered Sig/Jaqueline Route PRN Reason Start Time Stop Time Status Last Admin Dose Admin Acetaminophen (Tylenol) 650 mg Q4H PRN ORAL Mild Pain (Pain Scale 1-3) 09/05/17 16:30 10/05/17 16:29 Atorvastatin Calcium (Lipitor) 10 mg BEDTIME ORAL 09/06/17 21:00 10/06/17 20:59 Clopidogrel Bisulfate (Plavix) 75 mg DAILY ORAL 09/06/17 09:00 10/06/17 08:59 09/06/17 08:55 Cyanocobalamin (Vitamin B12) 1,000 mcg ONCE A WEEK IM 09/06/17 00:30 10/06/17 00:29 UNV Dextrose (Dextrose 50%) 25 ml STAT PRN IV Hypoglycemia 09/05/17 16:30 10/05/17 16:29 Dextrose (Dextrose 50%) 50 ml STAT PRN IV Hypoglycemia 09/05/17 16:30 10/05/17 16:29 Dextrose/Sodium Chloride 1,000 ml @ 75 mls/hr [id number] IV 09/05/17 17:20 10/05/17 17:19 09/06/17 06:19 Donepezil HCl (Aricept) 10 mg QHS ORAL 09/06/17 21:00 10/06/17 20:59 Ergocalciferol (Drisdol) 50,000 intlu QWEEK ORAL 09/06/17 00:45 10/06/17 00:44 UNV Ferrous Sulfate (Feosol) 325 mg DAILY ORAL 09/06/17 09:00 10/06/17 08:59 09/06/17 08:56 Folic Acid (Folate) 1 mg DAILY ORAL 09/06/17 09:00 10/06/17 08:59 09/06/17 08:56 HCTZ/Losartan Potassium (Hyzaar 50-12.5) 1 tab DAILY ORAL 09/06/17 09:00 10/06/17 08:59 09/06/17 09:48 Hydralazine HCl (Apresoline) 25 mg TIDPRN PRN ORAL For High Blood Pressure 09/05/17 19:45 10/05/17 19:44 Iopamidol (Isovue-300 100ml) 100 ml NOW PRN INJ Radiology Procedure 09/05/17 10:45 09/07/17 10:44 Magnesium Hydroxide (Mom) 30 ml DAILY ORAL 09/06/17 09:00 10/06/17 08:59 09/06/17 08:59 Meclizine HCl (Antivert) 12.5 mg THREE TIMES A DAY ORAL 09/06/17 09:00 10/05/17 16:29 09/06/17 08:59 Metoprolol Succinate (Toprol XL) 25 mg DAILY ORAL 09/06/17 09:00 10/06/17 08:59 09/06/17 08:56 Non-Formulary Medication (Non-Formulary Med) 1 ea DAILY ORAL 09/06/17 09:00 10/06/17 08:59 UNV Non-Formulary Medication (Non-Formulary Med) 1 ea DAILY ORAL 09/06/17 09:00 10/06/17 08:59 UNV Ondansetron HCl (Zofran) 4 mg Q4H PRN IVP Nausea & Vomiting 09/06/17 00:30 10/06/17 00:29 Pantoprazole (Protonix) 40 mg BEFORE BREAKFAST ORAL 09/06/17 06:30 10/06/17 06:29 09/06/17 06:19 Trazodone HCl (Desyrel) 50 mg BEDTIME ORAL 09/06/17 21:00 10/06/17 20:59 GI: Plan Problems: (1) Intractable vomiting (2) Gastroenteritis (3) Vertigo (4) Vomiting (5) Abdominal pain Plan Head/AP CT reviewed >> no acute findings no active N/V or vertigo hyperglycemia >> add HgA1C r/o possible diabetic gastroparesis symptomatic treatment >> will consider endoscopy if patient has persistent vomiting adv diet as tolerated zofran prn, reglan for persistent vomiting meclizine prn ppi PO electrolyte correction fu labs Discussed with Dr. Membreno. Thank you for this patient referral, we will follow. The patient was seen and examined at bedside and all new and available data was reviewed in the patients chart. I agree with the above findings, impression and plan. (Patient seen earlier today. Signature stamp does not reflect patient encounter time.). - MD Carolee Camargo,[facility] [employer] Sep 06, 2017 10:54
--- NOTE | 2017-09-06 11:18 | General Progress Note ---
Assessment/Plan Assessment/Plan anxiety d/o remeromaryanne 7.5qhs d/w Dr. Roy Subjective Date patient seen: Sep 06, 2017 Neurologic/Psychiatric: Reports: anxiety Allergies: Coded Allergies: No Known Allergies (Unverified , 04/17/17) Subjective the pt still dizzy and weak however improved Objective Last 24 Hour Vital Signs Date Time Temp Pulse Resp B/P (MAP) Pulse Ox O2 Delivery O2 Flow Rate FiO2 09/06/17 09:48 118/59 09/06/17 08:56 76 118/59 09/06/17 08:00 97.1 76 21 118/59 97 Room Air 97.1 09/06/17 04:00 98.8 75 19 116/63 93 Room Air 98.8 09/06/17 00:00 99.0 87 19 105/62 94 Room Air 99.0 09/05/17 20:00 97.5 109 19 139/81 95 Room Air 97.5 09/05/17 16:24 98.0 83 14 165/70 94 Room Air 98.0 09/05/17 16:21 98.0 90 14 165/70 93 Room Air 98.0 09/05/17 14:50 90 14 193/84 93 Room Air 09/05/17 14:18 173/88 Intake and Output 09/05/17 09/06/17 19:00 07:00 Intake Total 500 ml 825 ml Output Total 1000 ml 500 ml Balance -500 ml 325 ml Intake Oral 0 ml IV Total 500 ml 825 ml Output Urine Total 950 ml 500 ml Gastric Drainage Total 50 ml Laboratory Tests 09/06/17 06:30: White Blood Count 12.3H, Red Blood Count 4.17L, Hemoglobin 13.1L, Hematocrit 37.6L, Mean Corpuscular Volume 90, Mean Corpuscular Hemoglobin 31.5H, Mean Corpuscular Hemoglobin Concent 34.9, Red Cell Distribution Width 12.7, Platelet Count 232, Mean Platelet Volume 8.3, Neutrophils (%) (Auto) 77.2H, Lymphocytes ( %) (Auto) 13.7L, Monocytes (%) (Auto) 8.5, Eosinophils (%) (Auto) 0.2, Basophils (%) (Auto) 0.4, Sodium Level 138, Potassium Level 3.7, Chloride Level 103, Carbon Dioxide Level 31, Anion Gap 5, Blood Urea Nitrogen 18, Creatinine 1.0, Estimat Glomerular Filtration Rate , Glucose Level 117H, Calcium Level 9.0 Height (Feet): 5 Height (Inches): 5.00 Weight (Pounds): 150 General Appearance: WD/WN, no apparent distress, alert Neurologic: oriented x 3, responsive Radha Celis M.D. Sep 06, 2017 11:18
[2017-09-06 12:00] VITALS: BP 122/66
--- NOTE | 2017-09-06 12:16 | Internal Med Progress Note ---
Subjective Physician Name Emil Sanderson Attending Physician Emil Sanderson M.D. Current Medications Medications (Trade) Dose Ordered Sig/Jaqueline Route PRN Reason Start Time Stop Time Status Last Admin Dose Admin Acetaminophen (Tylenol) 650 mg Q4H PRN ORAL Mild Pain (Pain Scale 1-3) 09/05/17 16:30 10/05/17 16:29 Atorvastatin Calcium (Lipitor) 10 mg BEDTIME ORAL 09/06/17 21:00 10/06/17 20:59 Clopidogrel Bisulfate (Plavix) 75 mg DAILY ORAL 09/06/17 09:00 10/06/17 08:59 09/06/17 08:55 Cyanocobalamin (Vitamin B12) 1,000 mcg ONCE A WEEK IM 09/06/17 00:30 10/06/17 00:29 UNV Dextrose (Dextrose 50%) 25 ml STAT PRN IV Hypoglycemia 09/05/17 16:30 10/05/17 16:29 Dextrose (Dextrose 50%) 50 ml STAT PRN IV Hypoglycemia 09/05/17 16:30 10/05/17 16:29 Dextrose/Sodium Chloride 1,000 ml @ 75 mls/hr [id number] IV 09/05/17 17:20 10/05/17 17:19 09/06/17 06:19 Ergocalciferol (Drisdol) 50,000 intlu QWEEK ORAL 09/06/17 00:45 10/06/17 00:44 UNV Ferrous Sulfate (Feosol) 325 mg DAILY ORAL 09/06/17 09:00 10/06/17 08:59 09/06/17 08:56 Folic Acid (Folate) 1 mg DAILY ORAL 09/06/17 09:00 10/06/17 08:59 09/06/17 08:56 HCTZ/Losartan Potassium (Hyzaar 50-12.5) 1 tab DAILY ORAL 09/06/17 09:00 10/06/17 08:59 09/06/17 09:48 Hydralazine HCl (Apresoline) 25 mg TIDPRN PRN ORAL For High Blood Pressure 09/05/17 19:45 10/05/17 19:44 Iopamidol (Isovue-300 100ml) 100 ml NOW PRN INJ Radiology Procedure 09/05/17 10:45 09/07/17 10:44 Magnesium Hydroxide (Mom) 30 ml DAILY ORAL 09/06/17 09:00 10/06/17 08:59 09/06/17 08:59 Meclizine HCl (Antivert) 12.5 mg THREE TIMES A DAY ORAL 09/06/17 09:00 10/05/17 16:29 09/06/17 08:59 Metoprolol Succinate (Toprol XL) 25 mg DAILY ORAL 09/06/17 09:00 10/06/17 08:59 09/06/17 08:56 Mirtazapine (Remeron) 7.5 mg BEDTIME ORAL 09/06/17 21:00 10/06/17 20:59 Ondansetron HCl (Zofran) 4 mg Q4H PRN IVP Nausea & Vomiting 09/06/17 00:30 10/06/17 00:29 Pantoprazole (Protonix) 40 mg BEFORE BREAKFAST ORAL 09/06/17 06:30 10/06/17 06:29 09/06/17 06:19 Allergies: Coded Allergies: No Known Allergies (Unverified , 04/17/17) ROS Limited/Unobtainable: No Objective Last Vital Signs Date Time Temp Pulse Resp B/P (MAP) Pulse Ox O2 Delivery O2 Flow Rate FiO2 09/06/17 09:48 118/59 09/06/17 08:56 76 09/06/17 08:00 97.1 21 97 Room Air 97.1 General Appearance: WD/WN, no apparent distress EENT: PERRL/EOMI, normal ENT inspection Neck: non-tender, normal alignment Cardiovascular: normal rate, regular rhythm Respiratory/Chest: lungs clear, normal breath sounds Abdomen: non tender, soft Extremities: normal range of motion, non-tender Edema: mild edema Neurologic: alert, normal mood/affect Laboratory Tests Test 09/06/17 06:30 White Blood Count 12.3 K/UL (4.8-10.8) H Red Blood Count 4.17 M/UL (4.70-6.10) L Hemoglobin 13.1 G/DL (14.2-18.0) L Hematocrit 37.6 % (42.0-52.0) L Mean Corpuscular Volume 90 FL (80-99) Mean Corpuscular Hemoglobin 31.5 PG (27.0-31.0) H Mean Corpuscular Hemoglobin Concent 34.9 G/DL (32.0-36.0) Red Cell Distribution Width 12.7 % (11.6-14.8) Platelet Count 232 K/UL (150-450) Mean Platelet Volume 8.3 FL (6.5-10.1) Neutrophils (%) (Auto) 77.2 % (45.0-75.0) H Lymphocytes (%) (Auto) 13.7 % (20.0-45.0) L Monocytes (%) (Auto) 8.5 % (1.0-10.0) Eosinophils (%) (Auto) 0.2 % (0.0-3.0) Basophils (%) (Auto) 0.4 % (0.0-2.0) Sodium Level 138 MMOL/L (136-145) Potassium Level 3.7 MMOL/L (3.5-5.1) Chloride Level 103 MMOL/L (98-107) Carbon Dioxide Level 31 MMOL/L (21-32) Anion Gap 5 mmol/L (5-15) Blood Urea Nitrogen 18 mg/dL (7-18) Creatinine 1.0 MG/DL (0.55-1.30) Estimat Glomerular Filtration Rate mL/min (>60) Glucose Level 117 MG/DL (74-106) H Calcium Level 9.0 MG/DL (8.5-10.1) Intake and Output 09/05/17 09/06/17 19:00 07:00 Intake Total 500 ml 825 ml Output Total 1000 ml 500 ml Balance -500 ml 325 ml Intake Oral 0 ml IV Total 500 ml 825 ml Output Urine Total 950 ml 500 ml Gastric Drainage Total 50 ml Assessment/Plan Assessment/Plan ASSESSMENT: 1. Nausea, vomiting, and dizziness concerning for benign positional vertigo versus less likely Central vertigo versus secondary to hypertensive emergency 2. Hypertensive urgency secondary to accelerated hypertension. 3. History of hyperlipidemia. 4. Thickened small intestine. PLAN: 1. Med/Surg. 2. Start Soft diet 3. Meclizine 12.5mg PO TID 4. Vestibular exercises to be done by physical therapy. 5. check orthostatics. dc HCTZ. change losartan to 40mg daily 6. CT brain done and no stroke seen. Neurology consulted 7. GI is consulted because of thickened proximal small intestine. 8. IV fluids. 9. dc exelon, aricept, memantidine, trazadone bc of conern for potential dizziness expected - Saturday if tolerating diet w/o n/v EMIL SANDERSON M.D. Sep 06, 2017 12:16
--- NOTE | 2017-09-06 13:22 | Consultation ---
History of Present Illness General Date patient seen: Sep 06, 2017 Chief Complaint: Vomiting Reason for Consultation: n/v Present Illness HPI 81year old male with multiple medical comorbidities presented to ED with complaints of worsening nausea and emesis. patient in adult care when he had "head spinning" followed by nausea and emesis. states this happens intermittently. has been on multiple medications for vertigo prior. states has vertigo often and cannot stop it. nothing helps. causes him to get dizzy followed by nausea then emesis. denies abdominal pain. surgery called to evaluate for possible etiology being sbo. thickening of proximal small bowel noted on CT. NG tube placed in ED given symptoms and concerns for abdominal etiology. since has improved and feels better. ng tube has been removed. Allergies: Coded Allergies: No Known Allergies (Unverified , 04/17/17) Medication History Scheduled Clopidogrel* (Clopidogrel*), 75 MG ORAL DAILY, (Reported) Colchicine (Colcrys), 0.6 MG PO DAILY, (Reported) Cyanocobalamin (Vitamin B-12) (Cyanocobalamin Injection), 1,000 MCG IJ ONCE A WEEK, (Reported) Cyclobenzaprine Hcl* (Flexeril*), 10 MG ORAL THREE TIMES A DAY, (Reported) Donepezil Hcl* (Aricept*), Unknown Dose ORAL DAILY, (Reported) Ergocalciferol (Vitamin D2) (Vitamin D2), 50,000 UNIT PO ONCE A WEEK, (Reported) Losartan/Hydrochlorothiazide (Losartan-Hctz 50-12.5 Mg Tab), 1 TAB ORAL DAILY, ( Reported) Losartan/Hydrochlorothiazide 100-12.5 Tablet (Hyzaar 100-12.5 Tablet), 1 TAB ORAL DAILY, (Reported) Losartan/Hydrochlorothiazide 50-12.5 Tablet* (Hyzaar 50-12.5 Tablet*), Unknown Dose ORAL DAILY, (Reported) Magnesium Hydroxide* (Milk Of Magnesia*), 30 ML ORAL DAILY, (Reported) Meclizine Hcl* (Meclizine*), 12.5 MG ORAL BID, (Reported) Memantine HCl/Donepezil HCl (Namzaric 28 mg-10 mg Capsule), 1 EACH PO DAILY, ( Reported) Metformin Hcl* (Metformin Hcl*), Unknown Dose ORAL TWICE A DAY, (Reported) Metoprolol Succinate* (Metoprolol Succinate*), 25 MG ORAL DAILY, (Reported) Pantoprazole Sodium (Protonix), 40 MG ORAL DAILY, (Reported) Ranitidine Hcl* (Zantac*), 150 MG ORAL TWICE A DAY Rivastigmine Tartrate (Rivastigmine), 4.5 MG PO DAILY, (Reported) Simvastatin (Zocor), 20 MG ORAL DAILY, (Reported) Simvastatin (Zocor), 20 MG ORAL BEDTIME, (Reported) Trazodone Hcl* (Desyrel*), 50 MG ORAL BEDTIME, (Reported) Scheduled PRN Hydrocodone Bit/Acetaminophen 5-325* ([place] 5-325*), 1 TAB ORAL Q6H PRN for For Pain, (Reported) Ondansetron Odt* (Zofran Odt*), 4 MG ORAL Q6H PRN for Nausea & Vomiting Miscellaneous Medications Rivastigmine (Exelon), Unknown Dose TD, (Reported) Patient History History Provided By: Patient, Medical Record, PMD Healthcare decision maker Resuscitation status Full Code Advanced Directive on File Past Medical/Surgical History Past Medical/Surgical History: (1) Abdominal pain (2) Vomiting (3) COPD (chronic obstructive pulmonary disease) (4) Dementia (5) Gastroenteritis (6) Hypercholesteremia (7) Vertigo (8) HTN (hypertension) (9) Intractable vomiting Review of Systems All Other Systems: negative except mentioned in HPI Physical Exam General Appearance: alert Lines, tubes and drains: peripheral HEENT: normocephalic Neck: normal alignment Respiratory/Chest: normal breath sounds, no respiratory distress, no accessory muscle use Cardiovascular/Chest: normal peripheral pulses, normal rate Abdomen: normal bowel sounds, non tender, soft, no organomegaly, no mass Extremities: normal inspection Neurologic: alert, oriented x 3 Last 24 Hour Vital Signs Date Time Temp Pulse Resp B/P (MAP) Pulse Ox O2 Delivery O2 Flow Rate FiO2 09/06/17 12:00 98.6 65 22 122/66 97 Room Air 98.6 09/06/17 09:48 118/59 09/06/17 08:56 76 118/59 09/06/17 08:00 97.1 76 21 118/59 97 Room Air 97.1 09/06/17 04:00 98.8 75 19 116/63 93 Room Air 98.8 09/06/17 00:00 99.0 87 19 105/62 94 Room Air 99.0 09/05/17 20:00 97.5 109 19 139/81 95 Room Air 97.5 09/05/17 16:24 98.0 83 14 165/70 94 Room Air 98.0 09/05/17 16:21 98.0 90 14 165/70 93 Room Air 98.0 09/05/17 14:50 90 14 193/84 93 Room Air 09/05/17 14:18 173/88 Intake and Output 09/05/17 09/06/17 19:00 07:00 Intake Total 500 ml 825 ml Output Total 1000 ml 500 ml Balance -500 ml 325 ml Intake Oral 0 ml IV Total 500 ml 825 ml Output Urine Total 950 ml 500 ml Gastric Drainage Total 50 ml Laboratory Tests Test 09/06/17 06:30 White Blood Count 12.3 K/UL (4.8-10.8) H Red Blood Count 4.17 M/UL (4.70-6.10) L Hemoglobin 13.1 G/DL (14.2-18.0) L Hematocrit 37.6 % (42.0-52.0) L Mean Corpuscular Volume 90 FL (80-99) Mean Corpuscular Hemoglobin 31.5 PG (27.0-31.0) H Mean Corpuscular Hemoglobin Concent 34.9 G/DL (32.0-36.0) Red Cell Distribution Width 12.7 % (11.6-14.8) Platelet Count 232 K/UL (150-450) Mean Platelet Volume 8.3 FL (6.5-10.1) Neutrophils (%) (Auto) 77.2 % (45.0-75.0) H Lymphocytes (%) (Auto) 13.7 % (20.0-45.0) L Monocytes (%) (Auto) 8.5 % (1.0-10.0) Eosinophils (%) (Auto) 0.2 % (0.0-3.0) Basophils (%) (Auto) 0.4 % (0.0-2.0) Sodium Level 138 MMOL/L (136-145) Potassium Level 3.7 MMOL/L (3.5-5.1) Chloride Level 103 MMOL/L (98-107) Carbon Dioxide Level 31 MMOL/L (21-32) Anion Gap 5 mmol/L (5-15) Blood Urea Nitrogen 18 mg/dL (7-18) Creatinine 1.0 MG/DL (0.55-1.30) Estimat Glomerular Filtration Rate mL/min (>60) Glucose Level 117 MG/DL (74-106) H Calcium Level 9.0 MG/DL (8.5-10.1) Height (Feet): 5 Height (Inches): 5.00 Weight (Pounds): 150 Medications Current Medications Medications (Trade) Dose Ordered Sig/Jaqueline Route PRN Reason Start Time Stop Time Status Last Admin Dose Admin Acetaminophen (Tylenol) 650 mg Q4H PRN ORAL Mild Pain (Pain Scale 1-3) 09/05/17 16:30 10/05/17 16:29 Atorvastatin Calcium (Lipitor) 10 mg BEDTIME ORAL 09/06/17 21:00 10/06/17 20:59 Clopidogrel Bisulfate (Plavix) 75 mg DAILY ORAL 09/06/17 09:00 10/06/17 08:59 09/06/17 08:55 Cyanocobalamin (Vitamin B12) 1,000 mcg ONCE A WEEK IM 09/06/17 00:30 10/06/17 00:29 UNV Dextrose (Dextrose 50%) 25 ml STAT PRN IV Hypoglycemia 09/05/17 16:30 10/05/17 16:29 Dextrose (Dextrose 50%) 50 ml STAT PRN IV Hypoglycemia 09/05/17 16:30 10/05/17 16:29 Dextrose/Sodium Chloride 1,000 ml @ 75 mls/hr [id number] IV 09/05/17 17:20 10/05/17 17:19 09/06/17 06:19 Ergocalciferol (Drisdol) 50,000 intlu QWEEK ORAL 09/06/17 00:45 10/06/17 00:44 UNV Ferrous Sulfate (Feosol) 325 mg DAILY ORAL 09/06/17 09:00 10/06/17 08:59 09/06/17 08:56 Folic Acid (Folate) 1 mg DAILY ORAL 09/06/17 09:00 10/06/17 08:59 09/06/17 08:56 Hydralazine HCl (Apresoline) 25 mg TIDPRN PRN ORAL For High Blood Pressure 09/05/17 19:45 10/05/17 19:44 Iopamidol (Isovue-300 100ml) 100 ml NOW PRN INJ Radiology Procedure 09/05/17 10:45 09/07/17 10:44 Losartan Potassium (Cozaar) 25 mg DAILY ORAL 09/07/17 09:00 10/07/17 08:59 UNV Magnesium Hydroxide (Mom) 30 ml DAILY ORAL 09/06/17 09:00 10/06/17 08:59 09/06/17 08:59 Meclizine HCl (Antivert) 12.5 mg THREE TIMES A DAY ORAL 09/06/17 09:00 10/05/17 16:29 09/06/17 08:59 Metoprolol Succinate (Toprol XL) 25 mg DAILY ORAL 09/06/17 09:00 10/06/17 08:59 09/06/17 08:56 Mirtazapine (Remeron) 7.5 mg BEDTIME ORAL 09/06/17 21:00 10/06/17 20:59 Ondansetron HCl (Zofran) 4 mg Q4H PRN IVP Nausea & Vomiting 09/06/17 00:30 10/06/17 00:29 Pantoprazole (Protonix) 40 mg BEFORE BREAKFAST ORAL 09/06/17 06:30 10/06/17 06:29 09/06/17 06:19 Assessment/Plan Problem List: (1) Intractable vomiting Assessment & Plan: 81M chronic vertigo. makes him dizzy. then nausea. then emesis. no abdominal pain. intermittent episodes for some time now. CT reviewed. exam benign. NG tube removed. +flatus. -no acute surgical intervention necessary -likely etiology vertigo -okay for diet will follow with recs thank you for this consultation. ICD Codes: R11.10 - Vomiting, unspecified SNOMED: [id number] Qualifiers: Qualified Codes: G43.A1 - Cyclical vomiting, intractable Status: stable Walt Husain Sep 06, 2017 13:22
--- NOTE | 2017-09-06 14:40 | Consultation ---
Consult Note Consult Note NEUROLOGY CONSULTATION: Full note dictated #[id number] 81 y/o, RH, CM with PH of dementia, dyslipidemia, HTN, diverticulosis, and a cholecystectomy. He was hospitalized on 09/05/17 for positional vertigo, nausea, vomiting and feeling ill. He feels very well today and has no neurologic symptoms. ON EXAM: Oriented to self, [facility]. M 3/3-0, 0/3 - 1 & 3 Unable to recall presidents. Math OK VS impaired. CN: Nl Motor/Sensory: Nl Reflexes: 1+ with absent ankle jerks. Stance & Gait: Stable with contact guard. IMPRESSION: Labyrinthine vertigo which has resolved today. Underlying dementia. REC: No further neuro- W/U. In future if vertigo returns Vazquez-Daroff exercises. Tegan Gallagher M.D., M.S.P.H. TEGAN GALLAGHER Sep 06, 2017 14:40
[2017-09-06 15:52] VITALS: BP 141/75
[2017-09-06 20:00] VITALS: BP 144/75
[2017-09-06] MEDS ORDERED: TraZODone 50mg tab ORAL SCH (21:00)
[2017-09-06] MEDS ORDERED: Donepezil 10mg tab ORAL SCH (21:00)
--- NOTE | 2017-09-06 21:17 | Consultation ---
DATE OF CONSULTATION: 09/06/2017 NEUROLOGY CONSULTATION CONSULTING PHYSICIAN: Hussein Gallagher M.D. REQUESTING PHYSICIAN: Emil Roy M.D. HISTORY: Mr. Zia Mtz is an 81-year-old, right-handed, gentleman, who does have a past history of dementia, dyslipidemia, hypertension, diverticulosis, and a remote history of a cholecystectomy. He was functioning relatively well until 09/05/2017 when he was admitted for a history of nausea, vomiting, feeling ill, and feeling vertiginous. The vertigo was definitely positional and would occur when he would change his position and when he lay flat, he would feel much better. The problem was quite bothersome yesterday, but this morning on awakening, it has completely resolved. He has had vertigo in the past, but not as bad as it was yesterday. He denies any associated weakness on one side or the other, numbness on one side or the other, problems with speech, problems with language, or problems with vision, but he does say that his memory has been quite poor for some time. PAST MEDICAL HISTORY: Significant for hypertension, dyslipidemia, dementia, cholecystectomy and prior episodes of vertigo. FAMILY HISTORY: Significant for high blood pressure in other family members. PERSONAL HISTORY: Home: He lives in a senior care. Work: He is retired now, he cannot tell me what he used to do in the past. Habits: He denies use of alcohol, tobacco, or illicit drugs at this point in time. MEDICATIONS: Present medications include losartan, Lipitor, mirtazapine, meclizine, Plavix, milk of magnesia, Toprol, folic acid, ferrous sulfate, Protonix, ergocalciferol, Zofran p.r.n., cyanocobalamin 1000 mcg monthly, hydralazine p.r.n., and Tylenol p.r.n. PHYSICAL EXAMINATION: GENERAL: He is a well-developed, well-nourished, pleasant gentleman, lying in bed, in no acute distress. VITAL SIGNS: Pulse 65/minute, blood pressure 122/66 mmHg, respirations 22/minute, and temperature 98.6 degrees Fahrenheit. HEAD: Normocephalic and atraumatic. EENT: Examination benign. NECK: No neck rigidity was observed. NEUROLOGIC EXAMINATION: MENTAL STATUS EXAMINATION: He was awake and alert. He was oriented to self. He thought he was at [facility]. He did not know the date, month, or year. He was able to recall 3/3 words immediately, but could not remember any of them in 1 minute and 3 minutes. He was unable to tell me who the present President was and who prior presidents were. His mathematical skills were fairly good. His visuospatial function was impaired. SPEECH: He had no dysarthria. LANGUAGE: Could not be tested adequately. CRANIAL NERVE EXAMINATION II: II: The visual aguayo were intact on confrontation testing. III, IV & : The external ocular movements were full and the pupils 3 mm in diameter, equal, round, regular, and reactive to light. V: He had normal facial sensations and the temporales, masseters, and pterygoids functioned normally. VII: He had normal facial expressions and no facial asymmetry. VIII: He was able to hear well bilaterally and had no nystagmus. IX: The palate moved symmetrically on phonation. X: He had no hoarseness of voice. XI: The sternocleidomastoids and trapezii functioned normally. XII: The tongue was in the midline without any fasciculations or atrophy. MOTOR SYSTEM: The tone was normal in all four extremities. Examination of muscle mass revealed no focal wasting. Examination of power revealed G 5/5 power in all muscle groups tested. SENSORY EXAMINATION: He had intact sensations to pinprick, light touch, and graphesthesia. COORDINATION: He performed well on prxhwq-ei-kaom and jjql-bg-kupw testing. REFLEXES: 1+ and bilaterally symmetrical at the biceps, triceps, brachioradialis, and knees, 0 at both ankles. The plantar responses were flexor bilaterally. STANCE: He stood up with contact guard. GAIT: He walked well with contact guard. Hallpike maneuver: Negative. DIAGNOSTIC IMPRESSION: 1. Mr. Zia Mtz is an 81-year-old, right-handed, gentleman, who does have a past history of hypertension, dyslipidemia, dementia, diverticulosis, and cholecystectomy, who has had vertigo in the past. On 09/05/2017, he was hospitalized for worsening positional vertigo associated with nausea, vomiting, and A feeling of being quite ill. Today on awakening, his symptoms had resolved. 2. On neurological examination, at this time, he does have problems with orientation, recent and remote memory, and visuospatial function. He however does not demonstrate any focal or lateralizing neurological findings. His deep tendon reflexes are globally diminished. 3. Laboratory data obtained thus far have revealed that he does have a WBC count elevated to 12,300. He is mildly anemic with a hemoglobin of 13.1 G. His chemistry panel is relatively benign except for elevated blood sugars and his urinalysis reveals negative leukocyte esterase, 5-10 red blood cells, and 0-2 white blood cells per high-power field. 4. A CT scan of the brain without contrast reveals atrophy and deep white matter changes, but no acute pathology. 5. The patient's history and neurological examination associated with his laboratory data and imaging studies are most compatible with labyrinthine vertigo, which has at this point in time resolved. The vertigo was definitely postural and it could have been part of a syndrome of benign positional vertigo. RECOMMENDATIONS: 1. Agree with management thus far. 2. At this point in time, no further neurological workup is recommended. 3. If in the future the vertigo returns, then Vazquez Daroff exercises performed daily might be useful and helpful. Thank you for entrusting me with the care of Mr. Mtz. I shall follow him with you. Hussein Gallagher M.D., M.S.P.H. DR: CHADWICK JOB#: [id number] [facility] HOSPITALGayle
[2017-09-07] VITALS: BP 132/73
[2017-09-07 04:00] VITALS: BP 137/66
[2017-09-07 08:00] VITALS: BP 141/80
[2017-09-07 08:51] LABS: EOSINOPHILS % (AUTO) 1.6 % (0.0-3.0); HEMATOCRIT 36.2 % (42.0-52.0); HEMOGLOBIN 12.2 G/DL (14.2-18.0); LYMPHOCYTES % (AUTO) 23.4 % (20.0-45.0); MEAN CORPUSCULAR VOLUME 92 FL (80-99); MONOCYTES % (AUTO) 8.6 % (1.0-10.0); NEUTROPHILS % (AUTO) 65.3 % (45.0-75.0); PLATELET COUNT 204 K/UL (150-450); RED BLOOD COUNT 3.94 M/UL (4.70-6.10); RED CELL DISTRIBUTION WIDTH 12.9 % (11.6-14.8); WHITE BLOOD COUNT 7.8 K/UL (4.8-10.8)
[2017-09-07] MEDS: Metoprolol Succinate XL 25mg tab ORAL SCH (08:51)
[2017-09-07] MEDS: Meclizine 25mg tab ORAL SCH ×3 (08:51→17:32)
[2017-09-07] MEDS: Losartan 25mg tab ORAL SCH (08:51)
[2017-09-07] MEDS: Milk of Magnesia 30ml Ud ORAL SCH (08:59)
[2017-09-07] MEDS: D5NS 1,000 ML IV SCH ×2 (09:20→15:00)
[2017-09-07 09:21] LABS: ANION GAP 7 mmol/L (5-15); BLOOD UREA NITROGEN 16 mg/dL (7-18); CARBON DIOXIDE 31 MMOL/L (21-32); CHLORIDE 105 MMOL/L (98-107); CREATININE 0.8 MG/DL (0.55-1.30); POTASSIUM 3.5 MMOL/L (3.5-5.1); SODIUM 142 MMOL/L (136-145)
--- NOTE | 2017-09-07 10:25 | General Progress Note ---
Assessment/Plan Problem List: (1) Intractable vomiting ICD Codes: R11.10 - Vomiting, unspecified SNOMED: 517198740 Qualifiers: Qualified Codes: G43.A1 - Cyclical vomiting, intractable (2) HTN (hypertension) ICD Codes: I10 - Essential (primary) hypertension SNOMED: 76133615 (3) Vertigo ICD Codes: R42 - Dizziness and giddiness SNOMED: 475247951 (4) Hypercholesteremia ICD Codes: E78.00 - Pure hypercholesterolemia, unspecified SNOMED: 87997711 (5) Gastroenteritis ICD Codes: K52.9 - Noninfective gastroenteritis and colitis, unspecified SNOMED: 29504653 (6) Dementia ICD Codes: F03.90 - Unspecified dementia without behavioral disturbance SNOMED: 53348853 (7) COPD (chronic obstructive pulmonary disease) ICD Codes: J44.9 - Chronic obstructive pulmonary disease, unspecified SNOMED: 85182137 (8) Abdominal pain ICD Codes: R10.9 - Unspecified abdominal pain SNOMED: 54383629 Assessment/Plan no abd pain nausea has resolved drop in H&H but no active gIB fu labs GI procedures if cont to drop in H&H or recurrent abd pain Subjective ROS Limited/Unobtainable: Yes Allergies: Coded Allergies: No Known Allergies (Unverified , 04/17/17) Subjective no abd pain wants to go home Objective Last 24 Hour Vital Signs Date Time Temp Pulse Resp B/P (MAP) Pulse Ox O2 Delivery O2 Flow Rate FiO2 09/07/17 08:51 141/80 09/07/17 08:51 62 141/80 09/07/17 08:00 97.3 62 20 141/80 93 Room Air 97.3 09/07/17 04:00 98.3 62 19 137/66 93 Room Air 98.3 09/07/17 00:00 98.0 64 19 132/73 95 Room Air 98.0 09/06/17 20:00 98.5 66 19 144/75 93 Room Air 98.5 09/06/17 15:52 97.0 68 21 141/75 97 Room Air 97.0 09/06/17 12:00 98.6 65 22 122/66 97 Room Air 98.6 Intake and Output 09/06/17 09/07/17 19:00 07:00 Intake Total 1020 ml 1020 ml Output Total 400 ml Balance 620 ml 1020 ml Intake Oral 120 ml 120 ml IV Total 900 ml 900 ml Output Urine Total 400 ml # Voids 1 Laboratory Tests 09/07/17 06:18: White Blood Count 7.8, Red Blood Count 3.94L, Hemoglobin 12.2L, Hematocrit 36.2L , Mean Corpuscular Volume 92, Mean Corpuscular Hemoglobin 30.9, Mean Corpuscular Hemoglobin Concent 33.6, Red Cell Distribution Width 12.9, Platelet Count 204, Mean Platelet Volume 8.5, Neutrophils (%) (Auto) 65.3, Lymphocytes (% ) (Auto) 23.4, Monocytes (%) (Auto) 8.6, Eosinophils (%) (Auto) 1.6, Basophils ( %) (Auto) 1.0, Sodium Level 142, Potassium Level 3.5, Chloride Level 105, Carbon Dioxide Level 31, Anion Gap 7, Blood Urea Nitrogen 16, Creatinine 0.8, Estimat Glomerular Filtration Rate , Glucose Level 110H, Hemoglobin A1c 6.6H, Calcium Level 9.0 Height (Feet): 5 Height (Inches): 5.00 Weight (Pounds): 150 General Appearance: no apparent distress EENT: normal ENT inspection Neck: supple Cardiovascular: normal rate Respiratory/Chest: decreased breath sounds Abdomen: normal bowel sounds, non tender, soft Extremities: non-tender Gregor Membreno MD Sep 07, 2017 10:25
--- NOTE | 2017-09-07 11:06 | General Surgery Progress Note ---
General Surgery-Progress Note Subjective Symptoms: improved, pain absent, tolerating diet, passing flatus, BM Objective Last 24 Hour Vital Signs Date Time Temp Pulse Resp B/P (MAP) Pulse Ox O2 Delivery O2 Flow Rate FiO2 09/07/17 08:51 141/80 09/07/17 08:51 62 141/80 09/07/17 08:00 97.3 62 20 141/80 93 Room Air 97.3 09/07/17 04:00 98.3 62 19 137/66 93 Room Air 98.3 09/07/17 00:00 98.0 64 19 132/73 95 Room Air 98.0 09/06/17 20:00 98.5 66 19 144/75 93 Room Air 98.5 09/06/17 15:52 97.0 68 21 141/75 97 Room Air 97.0 09/06/17 12:00 98.6 65 22 122/66 97 Room Air 98.6 I&O Intake and Output 09/06/17 09/07/17 19:00 07:00 Intake Total 1020 ml 1020 ml Output Total 400 ml Balance 620 ml 1020 ml Intake Oral 120 ml 120 ml IV Total 900 ml 900 ml Output Urine Total 400 ml # Voids 1 Drains: none Cardiovascular: RSR Respiratory: clear Abdomen: soft, flat, non-tender, present bowel sounds Extremities: no edema, no tenderness, no cyanosis Laboratory Tests Test 09/07/17 06:18 White Blood Count 7.8 K/UL (4.8-10.8) Red Blood Count 3.94 M/UL (4.70-6.10) L Hemoglobin 12.2 G/DL (14.2-18.0) L Hematocrit 36.2 % (42.0-52.0) L Mean Corpuscular Volume 92 FL (80-99) Mean Corpuscular Hemoglobin 30.9 PG (27.0-31.0) Mean Corpuscular Hemoglobin Concent 33.6 G/DL (32.0-36.0) Red Cell Distribution Width 12.9 % (11.6-14.8) Platelet Count 204 K/UL (150-450) Mean Platelet Volume 8.5 FL (6.5-10.1) Neutrophils (%) (Auto) 65.3 % (45.0-75.0) Lymphocytes (%) (Auto) 23.4 % (20.0-45.0) Monocytes (%) (Auto) 8.6 % (1.0-10.0) Eosinophils (%) (Auto) 1.6 % (0.0-3.0) Basophils (%) (Auto) 1.0 % (0.0-2.0) Sodium Level 142 MMOL/L (136-145) Potassium Level 3.5 MMOL/L (3.5-5.1) Chloride Level 105 MMOL/L (98-107) Carbon Dioxide Level 31 MMOL/L (21-32) Anion Gap 7 mmol/L (5-15) Blood Urea Nitrogen 16 mg/dL (7-18) Creatinine 0.8 MG/DL (0.55-1.30) Estimat Glomerular Filtration Rate mL/min (>60) Glucose Level 110 MG/DL (74-106) H Hemoglobin A1c 6.6 % (4.3-6.0) H Calcium Level 9.0 MG/DL (8.5-10.1) Plan Problems: (1) Intractable vomiting Assessment & Plan: 81M chronic vertigo. makes him dizzy. then nausea. then emesis. no abdominal pain. intermittent episodes for some time now. CT reviewed. exam benign. NG tube removed. +flatus. -no acute surgical intervention necessary -likely etiology vertigo -okay for diet -okay to d/c from surgical standpoint will follow with recs thank you for this consultation. Walt Husain Sep 07, 2017 11:06
[2017-09-07 12:00] VITALS: BP 147/68
--- NOTE | 2017-09-07 14:13 | Neurology Progress Note ---
Interim History Interim History Interim History Mr. Mtz feels well. He denies any vertigo. He complains of stomach discomfort. He continues to be forgetful but is better than yesterday. He denies any new neurologic symptoms. He specifically denies any weakness, numbness, visual problems, hearing problems, or speech problems. Review of Systems Neuro Review of Systems Benign. Objective Physical Exam Last Vital Signs Date Time Temp Pulse Resp B/P (MAP) Pulse Ox O2 Delivery O2 Flow Rate FiO2 09/07/17 08:51 141/80 09/07/17 08:51 62 09/07/17 08:00 97.3 20 93 Room Air 97.3 Laboratory Tests Test 09/07/17 06:18 White Blood Count 7.8 K/UL (4.8-10.8) Red Blood Count 3.94 M/UL (4.70-6.10) L Hemoglobin 12.2 G/DL (14.2-18.0) L Hematocrit 36.2 % (42.0-52.0) L Mean Corpuscular Volume 92 FL (80-99) Mean Corpuscular Hemoglobin 30.9 PG (27.0-31.0) Mean Corpuscular Hemoglobin Concent 33.6 G/DL (32.0-36.0) Red Cell Distribution Width 12.9 % (11.6-14.8) Platelet Count 204 K/UL (150-450) Mean Platelet Volume 8.5 FL (6.5-10.1) Neutrophils (%) (Auto) 65.3 % (45.0-75.0) Lymphocytes (%) (Auto) 23.4 % (20.0-45.0) Monocytes (%) (Auto) 8.6 % (1.0-10.0) Eosinophils (%) (Auto) 1.6 % (0.0-3.0) Basophils (%) (Auto) 1.0 % (0.0-2.0) Sodium Level 142 MMOL/L (136-145) Potassium Level 3.5 MMOL/L (3.5-5.1) Chloride Level 105 MMOL/L (98-107) Carbon Dioxide Level 31 MMOL/L (21-32) Anion Gap 7 mmol/L (5-15) Blood Urea Nitrogen 16 mg/dL (7-18) Creatinine 0.8 MG/DL (0.55-1.30) Estimat Glomerular Filtration Rate mL/min (>60) Glucose Level 110 MG/DL (74-106) H Hemoglobin A1c 6.6 % (4.3-6.0) H Calcium Level 9.0 MG/DL (8.5-10.1) Neurologic Exam Objective PHYSICAL EXAMINATION: GENERAL: He is a well-developed, well-nourished, pleasant gentleman, lying in bed, in no acute distress. HEAD: Normocephalic and atraumatic. EENT: Examination benign. NECK: No neck rigidity was observed. NEUROLOGIC EXAMINATION: MENTAL STATUS EXAMINATION: He was awake and alert. He was oriented to self and date. He thought he was at [facility] but then corrected himself to [place]. He was able to recall 3/3 words immediately, but could not remember any of them in 1 minute and 3 minutes. He was unable to tell me who the present President was and who prior presidents were spontaneously. He however was able to remember Trump and Obama with hints. His mathematical skills were fairly good. His visuospatial function was impaired. SPEECH: He had no dysarthria. LANGUAGE: Could not be tested adequately. CRANIAL NERVE EXAMINATION II: II: The visual aguayo were intact on confrontation testing. III, IV & : The external ocular movements were full and the pupils 3 mm in diameter, equal, round, regular, and reactive to light. V: He had normal facial sensations and the temporales, masseters, and pterygoids functioned normally. VII: He had normal facial expressions and no facial asymmetry. VIII: He was able to hear well bilaterally and had no nystagmus. IX: The palate moved symmetrically on phonation. X: He had no hoarseness of voice. XI: The sternocleidomastoids and trapezii functioned normally. XII: The tongue was in the midline without any fasciculations or atrophy. MOTOR SYSTEM: The tone was normal in all four extremities. Examination of muscle mass revealed no focal wasting. Examination of power revealed G 5/5 power in all muscle groups tested. SENSORY EXAMINATION: He had intact sensations to pinprick, light touch, and graphesthesia. COORDINATION: He performed well on [id number]-ht-[id number] and [id number] testing. REFLEXES: 1+ and bilaterally symmetrical at the biceps, triceps, brachioradialis , and knees, 0 at both ankles. The plantar responses were flexor bilaterally. STANCE: He stood up with contact guard. GAIT: He walked well with contact guard. Hallpike maneuver: Negative. Impression/Recommendations Diagnostic Impression 1. Mr. Zia Mtz is an 81-year-old, right-handed, gentleman, who does have a past history of hypertension, dyslipidemia, dementia, diverticulosis, and cholecystectomy, who has had vertigo in the past. On 2017, he was hospitalized for worsening positional vertigo associated with nausea, vomiting, and A feeling of being quite ill. On 09/06/17 his symptoms had resolved. 2. He feels well. He denies any vertigo. He complains of stomach discomfort. He continues to be forgetful but is better than yesterday. He denies any new neurologic symptoms. 3. On neurological examination, at this time, he does have mild problems with orientation, recent and remote memory, and visuospatial function. He however does not demonstrate any focal or lateralizing neurological findings. His deep tendon reflexes are globally diminished. 4. Laboratory data obtained thus far have revealed that he does have a WBC count elevated to 12,300. He is mildly anemic with a hemoglobin of 13.1 G. His chemistry panel is relatively benign except for elevated blood sugars and his urinalysis reveals negative leukocyte esterase, 5-10 red blood cells, and 0- 2 white blood cells per high-power field. 5. A CT scan of the brain without contrast reveals atrophy and deep white matter changes, but no acute pathology. 6. The patient's history and neurological examination associated with his laboratory data and imaging studies are most compatible with labyrinthine vertigo, which has at this point in time resolved. The vertigo was definitely postural and it could have been part of a syndrome of benign positional vertigo. Recommendations 1. Continue present management. 2. At this point in time, no further neurological workup is recommended. 3. If in the future the vertigo returns, then Vazquez Daroff exercises performed daily might be useful and helpful. Hussein Gallagher M.D., M.S.P.HUSSEIN REVELES Sep 07, 2017 14:13
--- NOTE | 2017-09-07 14:14 | Internal Med Progress Note ---
Subjective Date of Service: Sep 07, 2017 Physician Name Horacio Lyons Attending Physician Emil Roy M.D. Current Medications Medications (Trade) Dose Ordered Sig/Jaqueline Route PRN Reason Start Time Stop Time Status Last Admin Dose Admin Acetaminophen (Tylenol) 650 mg Q4H PRN ORAL Mild Pain (Pain Scale 1-3) 09/05/17 16:30 10/05/17 16:29 Atorvastatin Calcium (Lipitor) 10 mg BEDTIME ORAL 09/06/17 21:00 10/06/17 20:59 09/06/17 20:59 Clopidogrel Bisulfate (Plavix) 75 mg DAILY ORAL 09/06/17 09:00 10/06/17 08:59 09/06/17 08:55 Cyanocobalamin (Vitamin B12) 1,000 mcg ONCE A WEEK IM 09/10/17 09:00 10/10/17 08:59 Dextrose (Dextrose 50%) 25 ml STAT PRN IV Hypoglycemia 09/05/17 16:30 10/05/17 16:29 Dextrose (Dextrose 50%) 50 ml STAT PRN IV Hypoglycemia 09/05/17 16:30 10/05/17 16:29 Dextrose/Sodium Chloride 1,000 ml @ 75 mls/hr [id number] IV 09/05/17 17:20 10/05/17 17:19 09/06/17 20:59 Ergocalciferol (Drisdol) 50,000 intlu QWEEK ORAL 09/10/17 09:00 10/10/17 08:59 Ferrous Sulfate (Feosol) 325 mg DAILY ORAL 09/06/17 09:00 10/06/17 08:59 09/06/17 08:56 Folic Acid (Folate) 1 mg DAILY ORAL 09/06/17 09:00 10/06/17 08:59 09/07/17 08:51 Hydralazine HCl (Apresoline) 25 mg TIDPRN PRN ORAL For High Blood Pressure 09/05/17 19:45 10/05/17 19:44 Losartan Potassium (Cozaar) 25 mg DAILY ORAL 09/07/17 09:00 10/07/17 08:59 09/07/17 08:51 Magnesium Hydroxide (Mom) 30 ml DAILY ORAL 09/06/17 09:00 10/06/17 08:59 09/06/17 08:59 Meclizine HCl (Antivert) 12.5 mg THREE TIMES A DAY ORAL 09/06/17 09:00 10/05/17 16:29 09/07/17 12:56 Metoprolol Succinate (Toprol XL) 25 mg DAILY ORAL 09/06/17 09:00 10/06/17 08:59 09/07/17 08:51 Mirtazapine (Remeron) 7.5 mg BEDTIME ORAL 09/06/17 21:00 10/06/17 20:59 09/06/17 20:59 Ondansetron HCl (Zofran) 4 mg Q4H PRN IVP Nausea & Vomiting 09/06/17 00:30 10/06/17 00:29 Pantoprazole (Protonix) 40 mg BEFORE BREAKFAST ORAL 09/06/17 06:30 10/06/17 06:29 09/07/17 06:31 Allergies: Coded Allergies: No Known Allergies (Unverified , 04/17/17) ROS Limited/Unobtainable: No Constitutional: Reports: no symptoms HEENT: Reports: no symptoms Cardiovascular: Reports: no symptoms Respiratory: Reports: no symptoms Gastrointestinal/Abdominal: Reports: abdominal pain, nausea, vomiting Genitourinary: Reports: no symptoms Neurologic/Psychiatric: Reports: no symptoms Subjective 81 YO M admitted with nausea and vomiting. Now vertigo. Cover for [facility]-Dr Roy. Objective Last Vital Signs Date Time Temp Pulse Resp B/P (MAP) Pulse Ox O2 Delivery O2 Flow Rate FiO2 09/07/17 08:51 141/80 09/07/17 08:51 62 09/07/17 08:00 97.3 20 93 Room Air 97.3 General Appearance: WD/WN, alert, mild distress EENT: PERRL/EOMI, normal ENT inspection Neck: non-tender, normal alignment, supple, normal inspection Cardiovascular: normal peripheral pulses, normal rate, regular rhythm, no gallop/murmur, no JVD Respiratory/Chest: chest wall non-tender, lungs clear, normal breath sounds, no respiratory distress, no accessory muscle use Abdomen: no organomegaly, no mass, decreased bowel sounds, guarding, tender Extremities: normal range of motion, non-tender 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, no motor/sensory deficits Skin: normal pigmentation, warm/dry Laboratory Tests Test 09/07/17 06:18 White Blood Count 7.8 K/UL (4.8-10.8) Red Blood Count 3.94 M/UL (4.70-6.10) L Hemoglobin 12.2 G/DL (14.2-18.0) L Hematocrit 36.2 % (42.0-52.0) L Mean Corpuscular Volume 92 FL (80-99) Mean Corpuscular Hemoglobin 30.9 PG (27.0-31.0) Mean Corpuscular Hemoglobin Concent 33.6 G/DL (32.0-36.0) Red Cell Distribution Width 12.9 % (11.6-14.8) Platelet Count 204 K/UL (150-450) Mean Platelet Volume 8.5 FL (6.5-10.1) Neutrophils (%) (Auto) 65.3 % (45.0-75.0) Lymphocytes (%) (Auto) 23.4 % (20.0-45.0) Monocytes (%) (Auto) 8.6 % (1.0-10.0) Eosinophils (%) (Auto) 1.6 % (0.0-3.0) Basophils (%) (Auto) 1.0 % (0.0-2.0) Sodium Level 142 MMOL/L (136-145) Potassium Level 3.5 MMOL/L (3.5-5.1) Chloride Level 105 MMOL/L (98-107) Carbon Dioxide Level 31 MMOL/L (21-32) Anion Gap 7 mmol/L (5-15) Blood Urea Nitrogen 16 mg/dL (7-18) Creatinine 0.8 MG/DL (0.55-1.30) Estimat Glomerular Filtration Rate mL/min (>60) Glucose Level 110 MG/DL (74-106) H Hemoglobin A1c 6.6 % (4.3-6.0) H Calcium Level 9.0 MG/DL (8.5-10.1) Intake and Output 09/06/17 09/07/17 19:00 07:00 Intake Total 1020 ml 1020 ml Output Total 400 ml Balance 620 ml 1020 ml Intake Oral 120 ml 120 ml IV Total 900 ml 900 ml Output Urine Total 400 ml # Voids 1 Assessment/Plan Problem List: (1) Diverticulosis (2) Nausea & vomiting Assessment & Plan: Resolved. Continue prn zofran. See GI note. (3) Vertigo Assessment & Plan: Benign positional. See Neurology note. (4) Gastroenteritis (5) HTN (hypertension) Assessment & Plan: Continue losartan, metoprolol and hydralazine (6) Hypercholesteremia Status: progressing Horacio Lyons MD Sep 07, 2017 14:14
[2017-09-07] MEDS ORDERED: D5NS 1000ml IV ONE (15:58)
[2017-09-07 16:00] VITALS: BP 144/72
[2017-09-07 20:00] VITALS: BP 142/67
--- NOTE | 2017-09-07 22:52 | General Progress Note ---
Assessment/Plan Assessment/Plan anxiety d/o remeromaryanne 7.5qhs d/w Dr. Roy Subjective Date patient seen: Sep 07, 2017 Neurologic/Psychiatric: Reports: anxiety, depressed Allergies: Coded Allergies: No Known Allergies (Unverified , 04/17/17) Objective Last 24 Hour Vital Signs Date Time Temp Pulse Resp B/P (MAP) Pulse Ox O2 Delivery O2 Flow Rate FiO2 09/07/17 20:00 98.9 61 19 142/67 95 Room Air 98.9 09/07/17 16:00 98.3 63 20 144/72 95 Room Air 98.3 09/07/17 12:00 98.5 64 20 147/68 95 Room Air 98.5 09/07/17 09:00 64 69 66 09/07/17 08:51 141/80 09/07/17 08:51 62 141/80 09/07/17 08:00 97.3 62 20 141/80 93 Room Air 97.3 09/07/17 04:00 98.3 62 19 137/66 93 Room Air 98.3 09/07/17 00:00 98.0 64 19 132/73 95 Room Air 98.0 Intake and Output 09/06/17 09/07/17 19:00 07:00 Intake Total 1020 ml 1020 ml Output Total 400 ml Balance 620 ml 1020 ml Intake Oral 120 ml 120 ml IV Total 900 ml 900 ml Output Urine Total 400 ml # Voids 1 Laboratory Tests 09/07/17 06:18: White Blood Count 7.8, Red Blood Count 3.94L, Hemoglobin 12.2L, Hematocrit 36.2L , Mean Corpuscular Volume 92, Mean Corpuscular Hemoglobin 30.9, Mean Corpuscular Hemoglobin Concent 33.6, Red Cell Distribution Width 12.9, Platelet Count 204, Mean Platelet Volume 8.5, Neutrophils (%) (Auto) 65.3, Lymphocytes (% ) (Auto) 23.4, Monocytes (%) (Auto) 8.6, Eosinophils (%) (Auto) 1.6, Basophils ( %) (Auto) 1.0, Sodium Level 142, Potassium Level 3.5, Chloride Level 105, Carbon Dioxide Level 31, Anion Gap 7, Blood Urea Nitrogen 16, Creatinine 0.8, Estimat Glomerular Filtration Rate , Glucose Level 110H, Hemoglobin A1c 6.6H, Calcium Level 9.0 Height (Feet): 5 Height (Inches): 5.00 Weight (Pounds): 150 Radha Celis M.D. Sep 07, 2017 22:52
[2017-09-08] VITALS: BP 133/66
[2017-09-08 04:00] VITALS: BP 138/71
[2017-09-08] MEDS: D5NS 1,000 ML IV SCH (05:23)
[2017-09-08 08:00] VITALS: BP 129/62
[2017-09-08 08:42] LABS: EOSINOPHILS % (AUTO) 2.3 % (0.0-3.0); HEMATOCRIT 33.9 % (42.0-52.0); HEMOGLOBIN 11.6 G/DL (14.2-18.0); LYMPHOCYTES % (AUTO) 24.3 % (20.0-45.0); MEAN CORPUSCULAR VOLUME 91 FL (80-99); MONOCYTES % (AUTO) 8.2 % (1.0-10.0); NEUTROPHILS % (AUTO) 64.3 % (45.0-75.0); PLATELET COUNT 177 K/UL (150-450); RED BLOOD COUNT 3.72 M/UL (4.70-6.10); RED CELL DISTRIBUTION WIDTH 12.6 % (11.6-14.8); WHITE BLOOD COUNT 7.2 K/UL (4.8-10.8)
[2017-09-08 09:05] LABS: ALANINE AMINOTRANSFERASE 22 U/L (12-78); ALBUMIN/GLOBULIN RATIO 0.9 (1.0-2.7); ALKALINE PHOSPHATASE 42 U/L (46-116); ANION GAP 6 mmol/L (5-15); ASPARTATE AMINO TRANSFERASE 15 U/L (15-37); BLOOD UREA NITROGEN 17 mg/dL (7-18); CALCIUM 8.6 MG/DL (8.5-10.1); CARBON DIOXIDE 28 MMOL/L (21-32); CHLORIDE 106 MMOL/L (98-107); CREATININE 0.8 MG/DL (0.55-1.30); POTASSIUM 3.4 MMOL/L (3.5-5.1); SODIUM 140 MMOL/L (136-145)
--- NOTE | 2017-09-08 09:14 | General Progress Note ---
Assessment/Plan Problem List: (1) Intractable vomiting ICD Codes: R11.10 - Vomiting, unspecified SNOMED: 167068748 Qualifiers: Qualified Codes: G43.A1 - Cyclical vomiting, intractable (2) HTN (hypertension) ICD Codes: I10 - Essential (primary) hypertension SNOMED: 70138071 (3) Vertigo ICD Codes: R42 - Dizziness and giddiness SNOMED: 355086623 (4) Hypercholesteremia ICD Codes: E78.00 - Pure hypercholesterolemia, unspecified SNOMED: 01659977 (5) Gastroenteritis ICD Codes: K52.9 - Noninfective gastroenteritis and colitis, unspecified SNOMED: 00752173 (6) Dementia ICD Codes: F03.90 - Unspecified dementia without behavioral disturbance SNOMED: 54366597 (7) COPD (chronic obstructive pulmonary disease) ICD Codes: J44.9 - Chronic obstructive pulmonary disease, unspecified SNOMED: 73425616 (8) Abdominal pain ICD Codes: R10.9 - Unspecified abdominal pain SNOMED: 21820721 Assessment/Plan no abd pain nausea has resolved drop in H&H but no active gIB fu labs new information, patient has history of colon cancer, plan EHD and colonoscopy tomorrow ordered CEA Subjective ROS Limited/Unobtainable: Yes Allergies: Coded Allergies: No Known Allergies (Unverified , 04/17/17) Subjective no abd pain Objective Last 24 Hour Vital Signs Date Time Temp Pulse Resp B/P (MAP) Pulse Ox O2 Delivery O2 Flow Rate FiO2 09/08/17 08:00 97.2 51 20 129/62 93 Room Air 97.2 09/08/17 04:00 98.3 62 19 138/71 96 Room Air 98.3 09/08/17 00:00 98.2 63 19 133/66 95 Room Air 98.2 09/07/17 20:00 98.9 61 19 142/67 95 Room Air 98.9 09/07/17 16:00 98.3 63 20 144/72 95 Room Air 98.3 09/07/17 12:00 98.5 64 20 147/68 95 Room Air 98.5 Intake and Output 09/07/17 09/08/17 19:00 07:00 Intake Total 600 ml 945 ml Balance 600 ml 945 ml Intake Oral 120 ml IV Total 600 ml 825 ml # Voids 3 Laboratory Tests 09/08/17 06:18: White Blood Count 7.2, Red Blood Count 3.72L, Hemoglobin 11.6L, Hematocrit 33.9L , Mean Corpuscular Volume 91, Mean Corpuscular Hemoglobin 31.3H, Mean Corpuscular Hemoglobin Concent 34.4, Red Cell Distribution Width 12.6, Platelet Count 177, Mean Platelet Volume 8.3, Neutrophils (%) (Auto) 64.3, Lymphocytes (% ) (Auto) 24.3, Monocytes (%) (Auto) 8.2, Eosinophils (%) (Auto) 2.3, Basophils ( %) (Auto) 1.0, Sodium Level 140, Potassium Level 3.4L, Chloride Level 106, Carbon Dioxide Level 28, Anion Gap 6, Blood Urea Nitrogen 17, Creatinine 0.8, Estimat Glomerular Filtration Rate , Glucose Level 117H, Calcium Level 8.6, Total Bilirubin 1.0, Aspartate Amino Transf (AST/SGOT) 15, Alanine Aminotransferase (ALT/SGPT) 22, Alkaline Phosphatase 42L, Total Protein 6.2L, Albumin 3.0L, Globulin 3.2, Albumin/Globulin Ratio 0.9L Height (Feet): 5 Height (Inches): 5.00 Weight (Pounds): 150 General Appearance: alert EENT: normal ENT inspection Neck: supple Cardiovascular: normal rate Respiratory/Chest: lungs clear Abdomen: normal bowel sounds, non tender, soft Extremities: non-tender Gregor Membreno MD Sep 08, 2017 09:14
[2017-09-08] MEDS: Metoprolol Succinate XL 25mg tab ORAL SCH (09:21)
[2017-09-08] MEDS: Meclizine 25mg tab ORAL SCH ×3 (09:22→18:34)
[2017-09-08] MEDS: Losartan 25mg tab ORAL SCH (09:23)
[2017-09-08] MEDS: Milk of Magnesia 30ml Ud ORAL SCH (09:23)
[2017-09-08] MEDS ORDERED: D5NS 1000ml IV ONE (11:10)
[2017-09-08 12:00] VITALS: BP 128/62
--- NOTE | 2017-09-08 13:19 | Neurology Progress Note ---
Interim History Interim History Interim History Mr. Mtz feels well at this time. He denies any vertigo now. He says he was a little dizzy earlier this morning. He complains of mild stomach discomfort. His appetite is poor and he does not like the food much. He continues to be forgetful but is better than yesterday. He denies any new neurologic symptoms. He specifically denies any weakness, numbness, visual problems, hearing problems, or speech problems. Review of Systems Neuro Review of Systems Benign. Objective Physical Exam Last Vital Signs Date Time Temp Pulse Resp B/P (MAP) Pulse Ox O2 Delivery O2 Flow Rate FiO2 09/08/17 12:00 97.3 48 20 128/62 96 Room Air 97.3 Laboratory Tests Test 09/08/17 06:18 White Blood Count 7.2 K/UL (4.8-10.8) Red Blood Count 3.72 M/UL (4.70-6.10) L Hemoglobin 11.6 G/DL (14.2-18.0) L Hematocrit 33.9 % (42.0-52.0) L Mean Corpuscular Volume 91 FL (80-99) Mean Corpuscular Hemoglobin 31.3 PG (27.0-31.0) H Mean Corpuscular Hemoglobin Concent 34.4 G/DL (32.0-36.0) Red Cell Distribution Width 12.6 % (11.6-14.8) Platelet Count 177 K/UL (150-450) Mean Platelet Volume 8.3 FL (6.5-10.1) Neutrophils (%) (Auto) 64.3 % (45.0-75.0) Lymphocytes (%) (Auto) 24.3 % (20.0-45.0) Monocytes (%) (Auto) 8.2 % (1.0-10.0) Eosinophils (%) (Auto) 2.3 % (0.0-3.0) Basophils (%) (Auto) 1.0 % (0.0-2.0) Sodium Level 140 MMOL/L (136-145) Potassium Level 3.4 MMOL/L (3.5-5.1) L Chloride Level 106 MMOL/L (98-107) Carbon Dioxide Level 28 MMOL/L (21-32) Anion Gap 6 mmol/L (5-15) Blood Urea Nitrogen 17 mg/dL (7-18) Creatinine 0.8 MG/DL (0.55-1.30) Estimat Glomerular Filtration Rate mL/min (>60) Glucose Level 117 MG/DL (74-106) H Calcium Level 8.6 MG/DL (8.5-10.1) Total Bilirubin 1.0 MG/DL (0.2-1.0) Aspartate Amino Transf (AST/SGOT) 15 U/L (15-37) Alanine Aminotransferase (ALT/SGPT) 22 U/L (12-78) Alkaline Phosphatase 42 U/L (46-116) L Total Protein 6.2 G/DL (6.4-8.2) L Albumin 3.0 G/DL (3.4-5.0) L Globulin 3.2 g/dL Albumin/Globulin Ratio 0.9 (1.0-2.7) L Neurologic Exam Objective PHYSICAL EXAMINATION: GENERAL: He is a well-developed, well-nourished, pleasant gentleman, lying in bed, in no acute distress. HEAD: Normocephalic and atraumatic. EENT: Examination benign. NECK: No neck rigidity was observed. NEUROLOGIC EXAMINATION: MENTAL STATUS EXAMINATION: He was awake and alert. He was oriented to self, [place] [facility] and date. He was able to recall 3/3 words immediately, but could only remember 1/3 in 1 minute and 3 minutes. He was unable to tell me who the present President was and who prior presidents were spontaneously. He however was able to remember Trump and Obama with hints. His mathematical skills were fairly good. His visuospatial function was impaired. SPEECH: He had no dysarthria. LANGUAGE: Could not be tested adequately. CRANIAL NERVE EXAMINATION II: II: The visual aguayo were intact on confrontation testing. III, IV & : The external ocular movements were full and the pupils 3 mm in diameter, equal, round, regular, and reactive to light. V: He had normal facial sensations and the temporales, masseters, and pterygoids functioned normally. VII: He had normal facial expressions and no facial asymmetry. VIII: He was able to hear well bilaterally and had no nystagmus. IX: The palate moved symmetrically on phonation. X: He had no hoarseness of voice. XI: The sternocleidomastoids and trapezii functioned normally. XII: The tongue was in the midline without any fasciculations or atrophy. MOTOR SYSTEM: The tone was normal in all four extremities. Examination of muscle mass revealed no focal wasting. Examination of power revealed G 5/5 power in all muscle groups tested. SENSORY EXAMINATION: He had intact sensations to pinprick, light touch, and graphesthesia. COORDINATION: He performed well on [id number] and [id number]-[id number] testing. REFLEXES: 1+ and bilaterally symmetrical at the biceps, triceps, brachioradialis , and knees, 0 at both ankles. The plantar responses were flexor bilaterally. STANCE: He stood up with contact guard. GAIT: He walked well with contact guard. Hallpike maneuver: Negative. Impression/Recommendations Diagnostic Impression 1. Mr. Zia Mtz is an 81-year-old, right-handed, gentleman, who does have a past history of hypertension, dyslipidemia, dementia, diverticulosis, and cholecystectomy, who has had vertigo in the past. On 2017, he was hospitalized for worsening positional vertigo associated with nausea, vomiting, and A feeling of being quite ill. On 09/06/17 his symptoms had resolved. 2. He feels well at this time. He denies any vertigo now. He says he was a little dizzy earlier this morning. He complains of mild stomach discomfort. His appetite is poor and he does not like the food much. He continues to be forgetful. He denies any new neurologic symptoms. 3. On neurological examination, at this time, he does have mild problems with orientation, recent and remote memory, and visuospatial function. He however does not demonstrate any focal or lateralizing neurological findings. His deep tendon reflexes are globally diminished. 4. Laboratory data obtained thus far have revealed that he does have a WBC count elevated to 12,300. He is mildly anemic with a hemoglobin of 13.1 G. His chemistry panel is relatively benign except for elevated blood sugars and his urinalysis reveals negative leukocyte esterase, 5-10 red blood cells, and 0- 2 white blood cells per high-power field. 5. A CT scan of the brain without contrast reveals atrophy and deep white matter changes, but no acute pathology. 6. The patient's history and neurological examination associated with his laboratory data and imaging studies are most compatible with labyrinthine vertigo, which has at this point in time resolved. The vertigo was definitely postural and it could have been part of a syndrome of benign positional vertigo. Recommendations 1. Continue present management. 2. At this point in time, no further neurological workup is recommended. 3. Vazquez Daroff exercises performed twice daily might be useful and helpful. Tegan Jacobs M.D., M.S.Manish.Feroz. TEGAN JACOBS Sep 08, 2017 13:19
--- NOTE | 2017-09-08 14:47 | Internal Med Progress Note ---
Subjective Date of Service: Sep 08, 2017 Physician Name Horacio Lyons Attending Physician Emil Roy M.D. Current Medications Medications (Trade) Dose Ordered Sig/Jaqueline Route PRN Reason Start Time Stop Time Status Last Admin Dose Admin Acetaminophen (Tylenol) 650 mg Q4H PRN ORAL Mild Pain (Pain Scale 1-3) 09/05/17 16:30 10/05/17 16:29 Atorvastatin Calcium (Lipitor) 10 mg BEDTIME ORAL 09/06/17 21:00 10/06/17 20:59 09/07/17 20:38 Clopidogrel Bisulfate (Plavix) 75 mg DAILY ORAL 09/06/17 09:00 10/06/17 08:59 09/08/17 09:23 Cyanocobalamin (Vitamin B12) 1,000 mcg ONCE A WEEK IM 09/10/17 09:00 10/10/17 08:59 Dextrose (Dextrose 50%) 25 ml STAT PRN IV Hypoglycemia 09/05/17 16:30 10/05/17 16:29 Dextrose (Dextrose 50%) 50 ml STAT PRN IV Hypoglycemia 09/05/17 16:30 10/05/17 16:29 Dextrose/Sodium Chloride 1,000 ml @ 75 mls/hr [id number] IV 09/05/17 17:20 10/05/17 17:19 09/08/17 05:23 Ergocalciferol (Drisdol) 50,000 intlu QWEEK ORAL 09/10/17 09:00 10/10/17 08:59 Ferrous Sulfate (Feosol) 325 mg DAILY ORAL 09/06/17 09:00 10/06/17 08:59 09/08/17 09:23 Folic Acid (Folate) 1 mg DAILY ORAL 09/06/17 09:00 10/06/17 08:59 09/08/17 09:21 Hydralazine HCl (Apresoline) 25 mg TIDPRN PRN ORAL For High Blood Pressure 09/05/17 19:45 10/05/17 19:44 Losartan Potassium (Cozaar) 25 mg DAILY ORAL 09/07/17 09:00 10/07/17 08:59 09/08/17 09:23 Magnesium Hydroxide (Mom) 30 ml DAILY ORAL 09/06/17 09:00 10/06/17 08:59 09/08/17 09:23 Meclizine HCl (Antivert) 12.5 mg THREE TIMES A DAY ORAL 09/06/17 09:00 10/05/17 16:29 09/08/17 12:55 Metoprolol Succinate (Toprol XL) 25 mg DAILY ORAL 09/06/17 09:00 10/06/17 08:59 09/08/17 09:21 Mirtazapine (Remeron) 7.5 mg BEDTIME ORAL 09/06/17 21:00 10/06/17 20:59 09/07/17 20:38 Ondansetron HCl (Zofran) 4 mg Q4H PRN IVP Nausea & Vomiting 09/06/17 00:30 10/06/17 00:29 Pantoprazole (Protonix) 40 mg BEFORE BREAKFAST ORAL 09/06/17 06:30 10/06/17 06:29 09/08/17 06:09 Polyethylene Glycol/ Electrolytes (Nulytely) 4,000 ml ONCE ONCE ORAL 09/08/17 16:00 09/08/17 16:01 Allergies: Coded Allergies: No Known Allergies (Unverified , 04/17/17) ROS Limited/Unobtainable: No Constitutional: Reports: no symptoms HEENT: Reports: no symptoms Cardiovascular: Reports: no symptoms Respiratory: Reports: no symptoms Gastrointestinal/Abdominal: Reports: nausea, vomiting Genitourinary: Reports: no symptoms Neurologic/Psychiatric: Reports: no symptoms Subjective 81 YO M admitted with nausea and vomiting. Now vertigo. Await endoscopy and colonoscopy on 09/09/17. Cover for [facility]-Dr Roy. Objective Last Vital Signs Date Time Temp Pulse Resp B/P (MAP) Pulse Ox O2 Delivery O2 Flow Rate FiO2 09/08/17 12:00 97.3 48 20 128/62 96 Room Air 97.3 Laboratory Tests Test 09/08/17 06:18 White Blood Count 7.2 K/UL (4.8-10.8) Red Blood Count 3.72 M/UL (4.70-6.10) L Hemoglobin 11.6 G/DL (14.2-18.0) L Hematocrit 33.9 % (42.0-52.0) L Mean Corpuscular Volume 91 FL (80-99) Mean Corpuscular Hemoglobin 31.3 PG (27.0-31.0) H Mean Corpuscular Hemoglobin Concent 34.4 G/DL (32.0-36.0) Red Cell Distribution Width 12.6 % (11.6-14.8) Platelet Count 177 K/UL (150-450) Mean Platelet Volume 8.3 FL (6.5-10.1) Neutrophils (%) (Auto) 64.3 % (45.0-75.0) Lymphocytes (%) (Auto) 24.3 % (20.0-45.0) Monocytes (%) (Auto) 8.2 % (1.0-10.0) Eosinophils (%) (Auto) 2.3 % (0.0-3.0) Basophils (%) (Auto) 1.0 % (0.0-2.0) Sodium Level 140 MMOL/L (136-145) Potassium Level 3.4 MMOL/L (3.5-5.1) L Chloride Level 106 MMOL/L (98-107) Carbon Dioxide Level 28 MMOL/L (21-32) Anion Gap 6 mmol/L (5-15) Blood Urea Nitrogen 17 mg/dL (7-18) Creatinine 0.8 MG/DL (0.55-1.30) Estimat Glomerular Filtration Rate mL/min (>60) Glucose Level 117 MG/DL (74-106) H Calcium Level 8.6 MG/DL (8.5-10.1) Total Bilirubin 1.0 MG/DL (0.2-1.0) Aspartate Amino Transf (AST/SGOT) 15 U/L (15-37) Alanine Aminotransferase (ALT/SGPT) 22 U/L (12-78) Alkaline Phosphatase 42 U/L (46-116) L Total Protein 6.2 G/DL (6.4-8.2) L Albumin 3.0 G/DL (3.4-5.0) L Globulin 3.2 g/dL Albumin/Globulin Ratio 0.9 (1.0-2.7) L Microbiology Date/Time Source Procedure Growth Status 09/06/17 10:19 Nasal Nares MRSA Culture - Final NO METHICILLIN RESISTANT STAPH AUREUS... Complete 09/06/17 10:19 Rectum VRE Culture - Final NO VANCOMYCIN RESISTANT ENTEROCOCCUS ... Complete Intake and Output 09/07/17 09/08/17 19:00 07:00 Intake Total 600 ml 945 ml Balance 600 ml 945 ml Intake Oral 120 ml IV Total 600 ml 825 ml # Voids 3 Objective General Appearance: WD/WN, alert, mild distress EENT: PERRL/EOMI, normal ENT inspection Neck: non-tender, normal alignment, supple, normal inspection Cardiovascular: normal peripheral pulses, normal rate, regular rhythm, no gallop/murmur, no JVD Respiratory/Chest: chest wall non-tender, lungs clear, normal breath sounds, no respiratory distress, no accessory muscle use Abdomen: no organomegaly, no mass, decreased bowel sounds, guarding, tender Extremities: normal range of motion, non-tender 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 Continue prn zofran. Colonoscopy and endoscopy on 09/09/17-See GI note. (3) Vertigo Assessment & Plan: Benign positional. See Neurology note. (4) Gastroenteritis (5) HTN (hypertension) Assessment & Plan: Continue losartan, metoprolol and hydralazine (6) Hypercholesteremia Status: tolerating diet Horacio Lyons MD Sep 08, 2017 14:47
[2017-09-08 16:00] VITALS: BP 153/70
[2017-09-08] MEDS ORDERED: Nulytely 4L ORAL ONE (16:00)
--- NOTE | 2017-09-08 17:24 | Cardiology Report ---
APPROVED REPORT EKG Measurement Heart [id number] Sinus rhythm with 1st degree AV block Minimal voltage criteria for LVH, may be normal variant Borderline ECG
--- NOTE | 2017-09-08 18:01 | General Surgery Progress Note ---
General Surgery-Progress Note Subjective Additional Comments doing well. does not like bowel prep. new history of colon ca? Objective Last 24 Hour Vital Signs Date Time Temp Pulse Resp B/P (MAP) Pulse Ox O2 Delivery O2 Flow Rate FiO2 09/08/17 16:00 97.2 49 20 153/70 95 Room Air 97.2 09/08/17 12:00 97.3 48 20 128/62 96 Room Air 97.3 09/08/17 09:23 127/60 09/08/17 09:21 51 127/60 09/08/17 09:00 51 51 53 09/08/17 08:00 97.2 51 20 129/62 93 Room Air 97.2 09/08/17 04:00 98.3 62 19 138/71 96 Room Air 98.3 09/08/17 00:00 98.2 63 19 133/66 95 Room Air 98.2 09/07/17 20:00 98.9 61 19 142/67 95 Room Air 98.9 I&O Intake and Output 09/07/17 09/08/17 19:00 07:00 Intake Total 600 ml 945 ml Balance 600 ml 945 ml Intake Oral 120 ml IV Total 600 ml 825 ml # Voids 3 Cardiovascular: RSR Respiratory: clear Abdomen: soft, distended, non-tender, present bowel sounds Extremities: no edema, no tenderness, no cyanosis Laboratory Tests Test 09/08/17 06:18 White Blood Count 7.2 K/UL (4.8-10.8) Red Blood Count 3.72 M/UL (4.70-6.10) L Hemoglobin 11.6 G/DL (14.2-18.0) L Hematocrit 33.9 % (42.0-52.0) L Mean Corpuscular Volume 91 FL (80-99) Mean Corpuscular Hemoglobin 31.3 PG (27.0-31.0) H Mean Corpuscular Hemoglobin Concent 34.4 G/DL (32.0-36.0) Red Cell Distribution Width 12.6 % (11.6-14.8) Platelet Count 177 K/UL (150-450) Mean Platelet Volume 8.3 FL (6.5-10.1) Neutrophils (%) (Auto) 64.3 % (45.0-75.0) Lymphocytes (%) (Auto) 24.3 % (20.0-45.0) Monocytes (%) (Auto) 8.2 % (1.0-10.0) Eosinophils (%) (Auto) 2.3 % (0.0-3.0) Basophils (%) (Auto) 1.0 % (0.0-2.0) Sodium Level 140 MMOL/L (136-145) Potassium Level 3.4 MMOL/L (3.5-5.1) L Chloride Level 106 MMOL/L (98-107) Carbon Dioxide Level 28 MMOL/L (21-32) Anion Gap 6 mmol/L (5-15) Blood Urea Nitrogen 17 mg/dL (7-18) Creatinine 0.8 MG/DL (0.55-1.30) Estimat Glomerular Filtration Rate mL/min (>60) Glucose Level 117 MG/DL (74-106) H Calcium Level 8.6 MG/DL (8.5-10.1) Total Bilirubin 1.0 MG/DL (0.2-1.0) Aspartate Amino Transf (AST/SGOT) 15 U/L (15-37) Alanine Aminotransferase (ALT/SGPT) 22 U/L (12-78) Alkaline Phosphatase 42 U/L (46-116) L Total Protein 6.2 G/DL (6.4-8.2) L Albumin 3.0 G/DL (3.4-5.0) L Globulin 3.2 g/dL Albumin/Globulin Ratio 0.9 (1.0-2.7) L Plan Problems: (1) Intractable vomiting Assessment & Plan: 81M chronic vertigo. makes him dizzy. then nausea. then emesis. no abdominal pain. intermittent episodes for some time now. CT reviewed. exam benign. new history of colon CA as per GI. -plans for scope tomorrow will await results. will follow with recs thank you for this consultation. Walt Husain Sep 08, 2017 18:01
[2017-09-08] MEDS ORDERED: Polyethylene Glycol 238gm bottle ORAL ONE (18:30)
[2017-09-08 20:00] VITALS: BP 159/68
[2017-09-09] VITALS (11 sets, daily range): BP systolic 116–164; BP diastolic 62–85
[2017-09-09] MEDS: D5NS 1,000 ML IV SCH (01:40)
[2017-09-09 07:36] LABS: BASOPHILS % (AUTO) 1.4 % (0.0-2.0); EOSINOPHILS % (AUTO) 2.7 % (0.0-3.0); HEMATOCRIT 36.9 % (42.0-52.0); HEMOGLOBIN 12.1 G/DL (14.2-18.0); LYMPHOCYTES % (AUTO) 27.9 % (20.0-45.0); MEAN CORPUSCULAR VOLUME 94 FL (80-99); MONOCYTES % (AUTO) 8.4 % (1.0-10.0); NEUTROPHILS % (AUTO) 59.6 % (45.0-75.0); PLATELET COUNT 181 K/UL (150-450); RED BLOOD COUNT 3.93 M/UL (4.70-6.10); RED CELL DISTRIBUTION WIDTH 12.7 % (11.6-14.8); WHITE BLOOD COUNT 6.7 K/UL (4.8-10.8)
[2017-09-09 08:13] LABS: ANION GAP 10 mmol/L (5-15); BLOOD UREA NITROGEN 12 mg/dL (7-18); CALCIUM 8.7 MG/DL (8.5-10.1); CARBON DIOXIDE 24 MMOL/L (21-32); CHLORIDE 108 MMOL/L (98-107); CREATININE 0.8 MG/DL (0.55-1.30); POTASSIUM 3.6 MMOL/L (3.5-5.1); SODIUM 142 MMOL/L (136-145)
[2017-09-09] MEDS ORDERED: Propofol 200mg/20ml IV ONE (08:30)
[2017-09-09] MEDS ORDERED: Atropine Sulfate 0.4mg/ml inj ONE (08:30)
[2017-09-09] MEDS ORDERED: Lidocaine 1% MPF 10mg/ml 5ml ONE (08:30)
--- NOTE | 2017-09-09 08:44 | Anethesia Preoperative Eval ---
Anesthesia Pre-op PMH/ROS General Date of Evaluation: Sep 09, 2017 Time of Evaluation: 08:42 Anesthesiologist: pam ASA Score: ASA 4 Mallampati Score Class I : Soft palate, uvula, fauces, pillars visible Class II: Soft palate, uvula, fauces visible Class III: Soft palate, base of uvula visible Class IV: Only hard plate visible Mallampati Classification: Class II Surgeon: kari Surgical Procedure: egd/colonoscopy Anesthesia History: none Family History: no anesthesia problems Allergies: Coded Allergies: No Known Allergies (Unverified , 04/17/17) Past Medical History Cardiovascular: Reports: HTN Pulmonary: Reports: COPD Endocrine: Reports: DM Anesthesia Pre-op Phys. Exam Physician Exam Last Vital Signs Date Time Temp Pulse Resp B/P (MAP) Pulse Ox O2 Delivery O2 Flow Rate FiO2 09/09/17 08:00 98.3 50 17 146/69 95 Room Air 98.3 Constitutional: NAD Neurologic: CN 2-12 intact Cardiovascular: RRR Respiratory: CTA Gastrointestinal: S/NT/ND Airway Exam Mallampati Score: Class II MO: limited Neck: short TMD: 2fb ROM: limited Anesthesia Pre-op A/P Labs Hematology Test 09/09/17 07:05 White Blood Count 6.7 K/UL (4.8-10.8) Red Blood Count 3.93 M/UL (4.70-6.10) L Hemoglobin 12.1 G/DL (14.2-18.0) L Hematocrit 36.9 % (42.0-52.0) L Mean Corpuscular Volume 94 FL (80-99) Mean Corpuscular Hemoglobin 30.8 PG (27.0-31.0) Mean Corpuscular Hemoglobin Concent 32.9 G/DL (32.0-36.0) Red Cell Distribution Width 12.7 % (11.6-14.8) Platelet Count 181 K/UL (150-450) Mean Platelet Volume 8.8 FL (6.5-10.1) Neutrophils (%) (Auto) 59.6 % (45.0-75.0) Lymphocytes (%) (Auto) 27.9 % (20.0-45.0) Monocytes (%) (Auto) 8.4 % (1.0-10.0) Eosinophils (%) (Auto) 2.7 % (0.0-3.0) Basophils (%) (Auto) 1.4 % (0.0-2.0) Chemistry Test 09/09/17 07:05 Sodium Level 142 MMOL/L (136-145) Potassium Level 3.6 MMOL/L (3.5-5.1) Chloride Level 108 MMOL/L (98-107) H Carbon Dioxide Level 24 MMOL/L (21-32) Anion Gap 10 mmol/L (5-15) Blood Urea Nitrogen 12 mg/dL (7-18) Creatinine 0.8 MG/DL (0.55-1.30) Estimat Glomerular Filtration Rate mL/min (>60) Glucose Level 115 MG/DL (74-106) H Calcium Level 8.7 MG/DL (8.5-10.1) Carcinoembryonic Antigen Pending Risk Assessment & Plan Assessment: asa4 Plan: mac Status Change Before Surgery: No Pre-Antibiotics Drug: Sarah Smith MD Sep 09, 2017 08:44
[2017-09-09] MEDS ORDERED: NS 500ML IVPB ONE (08:50)
[2017-09-09] MEDS: Milk of Magnesia 30ml Ud ORAL SCH (09:00)
--- NOTE | 2017-09-09 09:23 | Endoscopy Procedure Note ---
Endoscopy Procedure Note General Indication for Procedure: anemia Procedures Performed: EGD, colonoscopy Operative Findings/Diagnosis: multiple colon polyps, multiple gastric polyps Specimen: yes Pt Tolerated Procedure Well: Yes Estimated Blood Loss: none Anesthesia Anesthesiologist: pam Anesthesia: MAC Inserted Devices Implant(s) used?: No Quality Quality of Bowel Preparation: Good Did scope reach the cecum?: Yes Was there any complications?: No GI Core Measures 50 yrs or older w/o bx or poly: Not Applicable 10yrs. F/U not recommended: Not Applicable Gregor Membreno MD Sep 09, 2017 09:23
[2017-09-09] MEDS ORDERED: fentaNYL 100 mcg/2 mL IV PRN (10:06)
[2017-09-09] MEDS ORDERED: Midazolam 2mg/2ml Inj IVP PRN (10:07)
[2017-09-09] MEDS ORDERED: Atropine Inj 1mg/10ml Syr IV PRN (10:08)
[2017-09-09] MEDS ORDERED: DiphenhydrAMINE 50mg/ml Inj IVP PRN (10:08)
--- NOTE | 2017-09-09 10:35 | Neurology Progress Note ---
Interim History Interim History Interim History Mr. Mtz feels unwell. He just got back from his UGI endoscopy and colonoscopy. He denies any vertigo now, but says he was dizzy earlier. He complains of mild stomach discomfort and nausea. His appetite is poor and he does not like the food much. He continues to be forgetful. He denies any new neurologic symptoms. He specifically denies any weakness, numbness, visual problems, hearing problems, or speech problems. Review of Systems Neuro Review of Systems Benign. Objective Physical Exam Last Vital Signs Date Time Temp Pulse Resp B/P (MAP) Pulse Ox O2 Delivery O2 Flow Rate FiO2 09/09/17 09:50 98.0 69 18 156/72 97 Room Air 98.0 09/09/17 09:30 6.0 Laboratory Tests Test 09/09/17 07:05 White Blood Count 6.7 K/UL (4.8-10.8) Red Blood Count 3.93 M/UL (4.70-6.10) L Hemoglobin 12.1 G/DL (14.2-18.0) L Hematocrit 36.9 % (42.0-52.0) L Mean Corpuscular Volume 94 FL (80-99) Mean Corpuscular Hemoglobin 30.8 PG (27.0-31.0) Mean Corpuscular Hemoglobin Concent 32.9 G/DL (32.0-36.0) Red Cell Distribution Width 12.7 % (11.6-14.8) Platelet Count 181 K/UL (150-450) Mean Platelet Volume 8.8 FL (6.5-10.1) Neutrophils (%) (Auto) 59.6 % (45.0-75.0) Lymphocytes (%) (Auto) 27.9 % (20.0-45.0) Monocytes (%) (Auto) 8.4 % (1.0-10.0) Eosinophils (%) (Auto) 2.7 % (0.0-3.0) Basophils (%) (Auto) 1.4 % (0.0-2.0) Sodium Level 142 MMOL/L (136-145) Potassium Level 3.6 MMOL/L (3.5-5.1) Chloride Level 108 MMOL/L (98-107) H Carbon Dioxide Level 24 MMOL/L (21-32) Anion Gap 10 mmol/L (5-15) Blood Urea Nitrogen 12 mg/dL (7-18) Creatinine 0.8 MG/DL (0.55-1.30) Estimat Glomerular Filtration Rate mL/min (>60) Glucose Level 115 MG/DL (74-106) H Calcium Level 8.7 MG/DL (8.5-10.1) Carcinoembryonic Antigen Pending Neurologic Exam Objective PHYSICAL EXAMINATION: GENERAL: He is a well-developed, well-nourished, pleasant gentleman, lying in bed, in no acute distress. HEAD: Normocephalic and atraumatic. EENT: Examination benign. NECK: No neck rigidity was observed. NEUROLOGIC EXAMINATION: MENTAL STATUS EXAMINATION: He was awake and alert. He was oriented to self, [facility] and date. He was able to recall 3/3 words immediately, but could only remember 1/3 in 1 minute and 3 minutes. He was unable to tell me who the present President was and who prior presidents were spontaneously. He however was able to remember Trump and Obama with hints. His mathematical skills were fairly good. His visuospatial function was impaired. SPEECH: He had no dysarthria. LANGUAGE: Could not be tested adequately. CRANIAL NERVE EXAMINATION II: II: The visual aguayo were intact on confrontation testing. III, IV & : The external ocular movements were full and the pupils 3 mm in diameter, equal, round, regular, and reactive to light. V: He had normal facial sensations and the temporales, masseters, and pterygoids functioned normally. VII: He had normal facial expressions and no facial asymmetry. VIII: He was able to hear well bilaterally and had no nystagmus. IX: The palate moved symmetrically on phonation. X: He had no hoarseness of voice. XI: The sternocleidomastoids and trapezii functioned normally. XII: The tongue was in the midline without any fasciculations or atrophy. MOTOR SYSTEM: The tone was normal in all four extremities. Examination of muscle mass revealed no focal wasting. Examination of power revealed G 5/5 power in all muscle groups tested. SENSORY EXAMINATION: He had intact sensations to pinprick, light touch, and graphesthesia. COORDINATION: He performed well on [id number]-[id number] and [id number]-[id number] testing. REFLEXES: 1+ and bilaterally symmetrical at the biceps, triceps, brachioradialis , and knees, 0 at both ankles. The plantar responses were flexor bilaterally. STANCE & GAIT: Were deferred. Impression/Recommendations Diagnostic Impression 1. Mr. Zia Mtz is an 81-year-old, right-handed, gentleman, who does have a past history of hypertension, dyslipidemia, dementia, diverticulosis, and cholecystectomy, who has had vertigo in the past. On 2017, he was hospitalized for worsening positional vertigo associated with nausea, vomiting, and A feeling of being quite ill. On 09/06/17 his symptoms had resolved. 2. He feels unwell. He just got back from his UGI endoscopy and colonoscopy. He denies any vertigo now, but says he was dizzy earlier. He complains of mild stomach discomfort and nausea. His appetite is poor and he does not like the food much. He continues to be forgetful. He denies any new neurologic symptoms. 3. On neurological examination, at this time, he does have mild problems with orientation, recent and remote memory, and visuospatial function. He however does not demonstrate any focal or lateralizing neurological findings. His deep tendon reflexes are globally diminished. 4. Laboratory data obtained thus far have revealed that he does have a WBC count elevated to 12,300. He is mildly anemic with a hemoglobin of 13.1 G. His chemistry panel is relatively benign except for elevated blood sugars and his urinalysis reveals negative leukocyte esterase, 5-10 red blood cells, and 0- 2 white blood cells per high-power field. 5. A CT scan of the brain without contrast reveals atrophy and deep white matter changes, but no acute pathology. 6. As per his nurse his Upper GI endoscopy and colonoscopy revealed gastric and colonic polyps. 7. The patient's history and neurological examination associated with his laboratory data and imaging studies are most compatible with labyrinthine vertigo, which has at this point in time resolved. The vertigo was definitely postural and it could have been part of a syndrome of benign positional vertigo. Recommendations 1. Continue present management. 2. At this point in time, no further neurological workup is recommended. 3. Vazquez Daroff exercises performed twice daily might be useful and helpful. 4. GI management as per Dr. Membreno. Hussein Jacobs M.D., M.S.P.H. HUSSEIN JACOBS Sep 09, 2017 10:35
[2017-09-09] MEDS: Losartan 25mg tab ORAL SCH (10:39)
[2017-09-09] MEDS: Meclizine 25mg tab ORAL SCH ×2 (10:39→13:00)
[2017-09-09] MEDS: Metoprolol Succinate XL 25mg tab ORAL SCH (10:40)
--- NOTE | 2017-09-09 10:43 | Immediate Post-Op Evaluation ---
Immediate Post-Op Evalulation Immediate Post-Op Evalulation Procedure: egd/colonoscopy/bx Date of Evaluation: Sep 09, 2017 Time of Evaluation: 09:37 IV Fluids: 225ml 0.9ns Blood Products: none Estimated Blood Loss: negligible Blood Pressure Systolic: 156 Blood Pressure Diastolic: 83 Pulse Rate: 76 Respiratory Rate: 18 O2 Sat by Pulse Oximetry: 99 Temperature (Fahrenheit): 98.1 Pain Score (1-10): 0 Nausea: No Vomiting: No Complications none Patient Status: awake, reacts, patent Hydration Status: adequate Drug: Sarah Smith MD Sep 09, 2017 10:43
--- NOTE | 2017-09-09 11:17 | 48 Hour Post Anesthesia Eval ---
Post Anesthesia Evaluation Procedure: egd/colonoscopy/bx Date of Evaluation: Sep 09, 2017 Time of Evaluation: 09:39 Blood Pressure Systolic: 153 0: 85 Pulse Rate: 73 Respiratory Rate: 18 Temperature (Fahrenheit): 98.1 O2 Sat by Pulse Oximetry: 99 Airway: patent Nausea: No Vomiting: No Pain Intensity: 0 Hydration Status: adequate Cardiopulmonary Status: stable Mental Status/LOC: patient returned to baseline Post-Anesthesia Complications: none Follow-up care needed: N/A Sarah Gan MD Sep 09, 2017 11:17
--- NOTE | 2017-09-09 13:30 | Procedure Note ---
DATE OF PROCEDURE: 09/09/2017 SURGEON: Gregor Membreno M.D. PROCEDURE: Upper endoscopy with biopsy and colonoscopy with snare polypectomy and biopsy. Also upper endoscopy with snare polypectomy and colonoscopy with snare polypectomy. ANESTHESIA: Per Dr. Mccain. INSTRUMENT: Olympus adult flexible endoscope and colonoscope. INDICATION: Anemia and history of colon cancer. REASON FOR PROCEDURE: The procedure, risks, benefits, and possible consequences, including hemorrhage, aspiration, perforation and infection, and alternative treatments, were explained to the patient/legal guardian by Dr. Gregor Membreno and the patient/legal guardian understood and accepted these risks. DESCRIPTION OF PROCEDURE: After informed consent was obtained, the patient was adequately sedated, Olympus upper endoscope was advanced from mouth into the second portion of the duodenum and retroflexion was performed in the stomach. The patient has evidence of medium-sized hiatal hernia without any obvious esophagitis. No esophageal mass. In the stomach, there were multiple polyps. They removed two of the polyps, one of them looks pedunculated, inflammatory over was about 1 cm. This was removed in two pieces. There was also another polyp in the stomach for which proximal body of the stomach which was biopsied. There were multiple other polyps so we did not touch those, at this time they were smaller. The patient has evidence of diffuse gastritis. Random biopsy from antrum and body was obtained to rule out H. pylori infection. At this time, the upper endoscope was retrieved and the patient was turned over for colonoscopy. First rectal exam was performed, which was normal. Then, the scope was advanced from the rectum into the anastomosis. Random biopsy from anastomosis was obtained. There was no obvious mass at the anastomosis. There was total of four polyps in the transverse colon, three of them removed with the snare polypectomy, one with biopsy, the largest one was about 7 mm in size. The patient has also diverticulosis in the left colon. Retroflexion of rectum showed evidence of internal hemorrhoids. SUMMARY OF FINDINGS: 1. Medium-sized hiatal hernia. 2. Multiple gastric polyps, two of them removed, see above for details. 3. Gastritis, status post biopsy. 4. Four colonic polyps removed, see above for details. 5. Diverticulosis. 6. Internal hemorrhoids. RECOMMENDATIONS: 1. Follow up biopsies and treat accordingly. 2. If the biopsies are not worrisome, we will recommend repeat colonoscopy in three years. I want to thank, Dr. Roy, for this kind referral. Gregor Jennifer Membreno DR: BASHIR JOB#: [id number] CC: Emil Roy MD
--- NOTE | 2017-09-09 14:40 | Discharge Summary ---
Discharge Summary Hospital Course Date of Admission September 05, 2017 at 11:40 Date of Discharge Admitting Diagnosis Intractible vomiting HPI Zia Mtz is a 81 year old male who was admitted on September 05, 2017 at 11: 40 for Intractible Vomiting and Dizziness. A CT brain was negative for acute process. Was seen by neurology and found to have bPV. Started on meclizine and his dizziness, n/v resolved. He also underwent a colonoscopy because of history of colon cancer --> Polyps. Discharge Condition Upon Discharge: stable Discharge Disposition Patient was discharged to [facility] SHIRLEY SANDERSON M.D. Sep 09, 2017 14:40
--- NOTE | 2017-09-09 14:42 | Discharge Instructions ---
Discharge Instructions Discharge Instructions Follow up with: PCP in 1wk Call MD/Return to Hospital if: worsening symptoms Diet: regular Resume Normal Activity?: Yes Activity: resume normal activities For Congestive Heart Failure Reminder Report to your physician any weight gain of 5 pounds or more in one week. SHIRLEY SANDERSON M.D. Sep 09, 2017 14:42
--- NOTE | 2017-09-09 15:28 | General Surgery Progress Note ---
General Surgery-Progress Note Subjective Additional Comments no acute events. ... scope today Objective Last 24 Hour Vital Signs Date Time Temp Pulse Resp B/P (MAP) Pulse Ox O2 Delivery O2 Flow Rate FiO2 09/09/17 12:00 98.0 62 17 147/62 93 Room Air 98.0 09/09/17 11:17 208.6 73 18 99 09/09/17 11:16 208.6 76 18 99 09/09/17 10:40 69 156/72 09/09/17 10:39 156/72 09/09/17 09:50 98.0 69 18 156/72 97 Room Air 98.0 09/09/17 09:40 77 19 159/78 95 Room Air 09/09/17 09:35 80 15 153/85 96 Room Air 09/09/17 09:30 75 16 153/85 98 Simple Mask 6.0 09/09/17 09:25 98.1 76 18 156/82 99 Simple Mask 6.0 98.1 09/09/17 08:00 98.3 50 17 146/69 95 Room Air 98.3 09/09/17 04:00 97.9 56 19 116/71 98 Room Air 97.9 09/09/17 00:00 98.1 56 20 152/74 98 Room Air 98.1 09/08/17 20:00 98.2 74 20 159/68 100 Room Air 98.2 09/08/17 16:00 97.2 49 20 153/70 95 Room Air 97.2 I&O Intake and Output 09/08/17 09/09/17 19:00 07:00 Intake Total 195 ml 825 ml Balance 195 ml 825 ml Intake Oral 120 ml IV Total 75 ml 825 ml # Voids 4 4 # Bowel Movements 10 Drains: none Cardiovascular: RSR Respiratory: clear Abdomen: soft, flat, non-tender, present bowel sounds Extremities: no edema, no tenderness, no cyanosis Laboratory Tests Test 09/09/17 07:05 White Blood Count 6.7 K/UL (4.8-10.8) Red Blood Count 3.93 M/UL (4.70-6.10) L Hemoglobin 12.1 G/DL (14.2-18.0) L Hematocrit 36.9 % (42.0-52.0) L Mean Corpuscular Volume 94 FL (80-99) Mean Corpuscular Hemoglobin 30.8 PG (27.0-31.0) Mean Corpuscular Hemoglobin Concent 32.9 G/DL (32.0-36.0) Red Cell Distribution Width 12.7 % (11.6-14.8) Platelet Count 181 K/UL (150-450) Mean Platelet Volume 8.8 FL (6.5-10.1) Neutrophils (%) (Auto) 59.6 % (45.0-75.0) Lymphocytes (%) (Auto) 27.9 % (20.0-45.0) Monocytes (%) (Auto) 8.4 % (1.0-10.0) Eosinophils (%) (Auto) 2.7 % (0.0-3.0) Basophils (%) (Auto) 1.4 % (0.0-2.0) Sodium Level 142 MMOL/L (136-145) Potassium Level 3.6 MMOL/L (3.5-5.1) Chloride Level 108 MMOL/L (98-107) H Carbon Dioxide Level 24 MMOL/L (21-32) Anion Gap 10 mmol/L (5-15) Blood Urea Nitrogen 12 mg/dL (7-18) Creatinine 0.8 MG/DL (0.55-1.30) Estimat Glomerular Filtration Rate mL/min (>60) Glucose Level 115 MG/DL (74-106) H Calcium Level 8.7 MG/DL (8.5-10.1) Carcinoembryonic Antigen Pending Plan Problems: (1) Intractable vomiting Assessment & Plan: 81M chronic vertigo. makes him dizzy. then nausea. then emesis. no abdominal pain. intermittent episodes for some time now. CT reviewed. exam benign. new history of colon CA as per GI. -plans for scope today will await results. will follow with recs thank you for this consultation. Walt Husain Sep 09, 2017 15:28
--- NOTE | 2017-09-09 16:46 | General Progress Note ---
Assessment/Plan Assessment/Plan anxiety d/o remeron 15mg qhs d/w Dr. Roy Subjective Date patient seen: Sep 09, 2017 Neurologic/Psychiatric: Reports: anxiety, depressed, emotional problems Allergies: Coded Allergies: No Known Allergies (Unverified , 04/17/17) Subjective the pt came back from endoscopy and was agitated Objective Last 24 Hour Vital Signs Date Time Temp Pulse Resp B/P (MAP) Pulse Ox O2 Delivery O2 Flow Rate FiO2 09/09/17 16:20 164/77 09/09/17 12:00 98.0 62 17 147/62 93 Room Air 98.0 09/09/17 11:17 208.6 73 18 99 09/09/17 11:16 208.6 76 18 99 09/09/17 10:40 69 156/72 09/09/17 10:39 156/72 09/09/17 09:50 98.0 69 18 156/72 97 Room Air 98.0 09/09/17 09:40 77 19 159/78 95 Room Air 09/09/17 09:35 80 15 153/85 96 Room Air 09/09/17 09:30 75 16 153/85 98 Simple Mask 6.0 09/09/17 09:25 98.1 76 18 156/82 99 Simple Mask 6.0 98.1 09/09/17 08:00 98.3 50 17 146/69 95 Room Air 98.3 09/09/17 04:00 97.9 56 19 116/71 98 Room Air 97.9 09/09/17 00:00 98.1 56 20 152/74 98 Room Air 98.1 09/08/17 20:00 98.2 74 20 159/68 100 Room Air 98.2 Intake and Output 09/08/17 09/09/17 19:00 07:00 Intake Total 195 ml 825 ml Balance 195 ml 825 ml Intake Oral 120 ml IV Total 75 ml 825 ml # Voids 4 4 # Bowel Movements 10 Laboratory Tests 09/09/17 07:05: White Blood Count 6.7, Red Blood Count 3.93L, Hemoglobin 12.1L, Hematocrit 36.9L , Mean Corpuscular Volume 94, Mean Corpuscular Hemoglobin 30.8, Mean Corpuscular Hemoglobin Concent 32.9, Red Cell Distribution Width 12.7, Platelet Count 181, Mean Platelet Volume 8.8, Neutrophils (%) (Auto) 59.6, Lymphocytes (% ) (Auto) 27.9, Monocytes (%) (Auto) 8.4, Eosinophils (%) (Auto) 2.7, Basophils ( %) (Auto) 1.4, Sodium Level 142, Potassium Level 3.6, Chloride Level 108H, Carbon Dioxide Level 24, Anion Gap 10, Blood Urea Nitrogen 12, Creatinine 0.8, Estimat Glomerular Filtration Rate , Glucose Level 115H, Calcium Level 8.7, Carcinoembryonic Antigen [Pending] Height (Feet): 5 Height (Inches): 5.00 Weight (Pounds): 150 General Appearance: WD/WN, alert, moderate distress, agitated Radha Celis M.D. Sep 09, 2017 16:46
[2017-09-09] MEDS ORDERED: D5NS 1000ml IV ONE (17:14)
[2017-09-10] MEDS ORDERED: Vitamin B12 1000mcg/ml Inj IM SCH (09:00)
[2017-09-10] MEDS ORDERED: Vitamin D 50,000 units cap ORAL SCH (09:00)
== END 2017-09-09 17:34 | disposition home or self-care (01) | DRG 149 ==
LOC: EDBD 10:15 → EMR 11:25 → 4E 11:40 → EDBEDREQ 14:05
PROC: 0DB68ZX Excision of Stomach, Via Natural or Artificial Opening Endoscopic, Diagnostic (ICD-10-PCS; principal; 2017-09-09 08:53)
PROC: 0DBL8ZX Excision of Transverse Colon, Via Natural or Artificial Opening Endoscopic, Diagnostic (ICD-10-PCS; principal; 2017-09-09 08:53)
DX: H81.10 Benign paroxysmal vertigo, unspecified ear (principal); H81.09 Meniere's disease, unspecified ear; I16.0 Hypertensive urgency; I10 Essential (primary) hypertension; K29.70 Gastritis, unspecified, without bleeding; K44.9 Diaphragmatic hernia without obstruction or gangrene; K57.90 Diverticulosis of intestine, part unspecified, without perforation or abscess without bleeding; Z90.49 Acquired absence of other specified parts of digestive tract; K64.8 Other hemorrhoids; D18.09 Hemangioma of other sites; F41.9 Anxiety disorder, unspecified; K31.7 Polyp of stomach and duodenum; E11.65 Type 2 diabetes mellitus with hyperglycemia; J44.9 Chronic obstructive pulmonary disease, unspecified; K40.90 Unilateral inguinal hernia, without obstruction or gangrene, not specified as recurrent; E78.5 Hyperlipidemia, unspecified; D64.9 Anemia, unspecified; F03.90 Unspecified dementia, unspecified severity, without behavioral disturbance, psychotic disturbance, mood disturbance, and anxiety; F32.89 Other specified depressive episodes; Z79.84 Long term (current) use of oral hypoglycemic drugs; Z85.038 Personal history of other malignant neoplasm of large intestine
CPT/HCPCS: 36415; 70450; 71045; 74177; 80048; 80053; 81003; 82378; 82550; 82553; 83036; 83690; 84484; 85025; 87081; 93005; 99285; J2405; J8499